=== PATIENT | male | born 1935 | race Caucasian/White ===

== ENCOUNTER → 2018-06-22 13:04 | Outpatient (CLI) | payer MEDICARE, OTHER, SELFPAY ==
--- NOTE | 2018-06-22 | DI.US.S_ITS ---
PROCEDURE: US THYROID INDICATIONS: ABNORMAL THYROID LEVELS TECHNIQUE: Real-time scanning was performed of the thyroid gland, with image documentation. COMPARISON: None. FINDINGS: Right: Thyroid lobe measures 1.1 x 1.2 x 4.1 cm, and is homogeneous in echotexture. Left: Thyroid lobe measures 1.0 x 1.0 x 3.8 cm, and is homogenous in echotexture. Isthmus: 2.1 mm thick. Nodule number: 1 Location: Right lower pole Size: 0.4 x 0.5 x 0.5 cm. Composition: Solid Echogenicity: Mostly isoechoic Shape: Round Margins: Smooth Echogenic foci: None Total points: 3 ACR TI-RADS category: 3 IMPRESSION: Small 5 mm solid nodule in the inferior pole of the right lobe of thyroid posteriorly shows characteristics of category 3 lesion. ACR TI-RADS definitions and recommendations: TI-RADS 1 (benign): 0 points. FNA not needed. TI-RADS 2 (not suspicious): 2 points. FNA not needed. TI-RADS 3 (mildly suspicious): 3 points. * FNA if 2.5 cm or larger, follow up if 1.5 cm or larger (at 1, 3, and 5 years). TI-RADS 4 (moderately suspicious): 4-6 points. * FNA if 1.5 cm or larger, follow up if 1 cm or larger (at 1, 2, 3, and 5 years). TI-RADS 5 (highly suspicious): 7 points or more. * FNA if 1 cm or larger, follow up if 0.5 cm or larger (every year for 5 years). Dictated by: Alan Ponce M.D. on 06/22/2018 at 14:59 Approved by: Alan Ponce M.D. on 06/22/2018 at 15:06
== END ==
PROVIDERS: Family Provider Family Medicine; PCP Family Medicine; Visit Provider Family Medicine
DX: E04.1 Nontoxic single thyroid nodule (principal); E03.9 Hypothyroidism, unspecified
CPT/HCPCS: 76536

== ENCOUNTER 2018-07-18 07:22 | Day surgery (SDC) | payer MEDICARE, OTHER, SELFPAY ==
[2018-07-18] MEDS: PROPARACAINE 0.5% OPHTH SOL 2 DROPS EYE-OP (08:15)
[2018-07-18] MEDS: CATARACT EYE COMPOUND (10 DROPS/SYRINGE) 3 DROPS EYE-OP (08:20)
[2018-07-18 08:21] VITALS: BP 132/70; PULSE 69; RESP 16; TEMP 36.3; O2SAT 98; BMI 25.8
--- NOTE | 2018-07-18 09:18 | PM.PREOP ---
Pre-operative Note Interval Note Changes: No
--- NOTE | 2018-07-18 09:19 | P.OP.PRE_ITS ---
Pre-operative Note Interval Note Changes: No
--- NOTE | 2018-07-18 09:19 | P.OP_ITS ---
Operative Date/Time/Diagnoses Pre-op diagnosis: Cataract Right eye Post-op diagnosis: same Procedure & Clinicians Procedure: Cataract Surgery Same procedure as scheduled: Yes Surgeon: Sha Manzano Anesthesia Type: MAC +/- and Sedation Operative Notes Procedure in detail: Patient brought to the operating suite. Tetracaine drops placed in the right eye. Patient was prepped and draped in sterile manner. Wire lid speculum was placed in the eye. Betadine drops were placed on the eye. This was irrigated. Lidocaine jelly was placed on the eye. A paracentesis port was created with a side-port blade. 0.1 mL 1% preservative free lidocaine was injected into the anterior chamber. The anterior chamber was deepened with viscoelastic. 2.6 mm keratome was used to create a temporal clear corneal incision. Cystotome and Utrata forceps were used to create continuous tear capsulorrhexis. Balanced salt solution was used to hydro dissect the nucleus. The phacoemulsification handpiece was inserted and the nucleus was removed using the stop and chop technique. The irrigation aspiration handpiece was inserted and the remaining cortex was removed. Anterior chamber was deepened with viscoelastic. An Donato ZCB00 intraocular lens with a power of 19.5 was injected into the capsular bag. Irrigation aspiration handpiece was inserted and the remaining viscoelastic was removed. Incision was hydrated with balanced salt solution and found to be leak free with pressure with Weck- Belkys sponges. 0.1 mL Vigamox injected anterior chamber. 0.3 mL Kenalog 10 mg was injected subconjunctivally. Lid speculum was removed. The patient left the operating room in excellent condition. Complications: none Condition: stable Disposition: same day surgery
[2018-07-18] MEDS: LIDOCAINE JELLY 2% 5 ML 1 APPLIC TOP (09:28)
[2018-07-18] MEDS: CHONDROIDTIN/SOD HYALURONATE 1.05 ML SYRINGE INTRAOCULA (09:28)
[2018-07-18] MEDS: TETRACAINE 0.5% OPHTH DROPS 15 ML 2 DROPS EYE-RIGHT (09:29)
[2018-07-18] MEDS: TRIAMCINOLONE 50 MG/5 ML VIAL INJ (09:29)
[2018-07-18] MEDS: MOXIFLOXACIN OPHTH DROPS 3 ML BOTTLE 2 DROPS INJ (09:29)
[2018-07-18] MEDS: PHENYLEPHRINE/LIDOCAINE 3ML VIAL (OR) EYE-OP (09:29)
[2018-07-18] MEDS: BALANCED SALT IRRIG SOLN NO.2 500 ML, EPINEPHrine 1 MG IRR (09:30)
--- NOTE | 2018-07-18 09:36 | SUR.OPER ---
Supine on eye stretcher, head on extension cradle secured with tape. Arms tucked at sides with blanket. Pillow under knees.
[2018-07-18 09:46] VITALS: BP 156/78; PULSE 68; RESP 16; TEMP 36.3; O2SAT 97
== END 2018-07-18 09:53 ==
LOC: OR 07:23
PROVIDERS: PCP Family Medicine; Visit Provider Ophthalmology
DX: H25.11 Age-related nuclear cataract, right eye (principal)
CPT/HCPCS: J0171; J3301

== ENCOUNTER 2018-08-01 07:25 | Day surgery (SDC) | payer MEDICARE, OTHER, SELFPAY ==
[2018-08-01] MEDS: PROPARACAINE 0.5% OPHTH SOL 2 DROPS EYE-OP (07:48)
[2018-08-01 08:02] VITALS: BP 140/70; PULSE 67; RESP 16; TEMP 36; O2SAT 99; BMI 25.1
[2018-08-01] MEDS: CATARACT EYE COMPOUND (10 DROPS/SYRINGE) 3 DROPS EYE-OP (08:02)
--- NOTE | 2018-08-01 09:15 | PM.PREOP ---
Pre-operative Note Interval Note Changes: No
--- NOTE | 2018-08-01 09:16 | P.OP_ITS ---
Operative Date/Time/Diagnoses Pre-op diagnosis: Cataract Left eye Post-op diagnosis: same Procedure & Clinicians Surgeon: Sha Manzano Anesthesia Type: MAC +/- and Sedation Operative Notes Procedure in detail: Patient brought to the operating suite. Tetracaine drops placed in the left eye. Patient was prepped and draped in sterile manner. Wire lid speculum was placed in the eye. Betadine drops were placed on the eye. This was irrigated. Lidocaine jelly was placed on the eye. A paracentesis port was created with a side-port blade. 0.1 mL 1% preservative free lidocaine was injected into the anterior chamber. The anterior chamber was deepened with viscoelastic. 2.6 mm keratome was used to create a temporal clear corneal incision. Cystotome and Utrata forceps were used to create continuous tear capsulorrhexis. Balanced salt solution was used to hydro dissect the nucleus. The phacoemulsification handpiece was inserted and the nucleus was removed using the stop and chop technique. The irrigation aspiration handpiece was inserted and the remaining cortex was removed. Anterior chamber was deepened with viscoelastic. An Donato ZCB00 intraocular lens with a power of 20.0 was injected into the capsular bag. Irrigation aspiration handpiece was inserted and the remaining viscoelastic was removed. Incision was hydrated with balanced salt solution and found to be leak free with pressure with Weck- Belkys sponges. 0.1 mL Vigamox injected anterior chamber. 0.3 mL Kenalog 10 mg was injected subconjunctivally. Lid speculum was removed. The patient left the operating room in excellent condition. Complications: none Condition: stable Disposition: same day surgery
--- NOTE | 2018-08-01 09:16 | P.OP.PRE_ITS ---
Pre-operative Note Interval Note Changes: No
[2018-08-01] MEDS: CHONDROIDTIN/SOD HYALURONATE 1.05 ML SYRINGE INTRAOCULA (09:28)
[2018-08-01] MEDS: LIDOCAINE JELLY 2% 5 ML 1 APPLIC TOP (09:28)
[2018-08-01] MEDS: MOXIFLOXACIN OPHTH DROPS 3 ML BOTTLE 2 DROPS INJ (09:29)
[2018-08-01] MEDS: TETRACAINE 0.5% OPHTH DROPS 15 ML 2 DROPS EYE-LEFT (09:29)
[2018-08-01] MEDS: PHENYLEPHRINE/LIDOCAINE VIAL (OR) 0.2 ML EYE-OP (09:29)
[2018-08-01] MEDS: TRIAMCINOLONE 50 MG/5 ML VIAL INJ (09:29)
[2018-08-01] MEDS: BALANCED SALT IRRIG SOLN NO.2 500 ML, EPINEPHrine 1 MG IRR (09:30)
[2018-08-01 09:45] VITALS: BP 144/76; PULSE 61; RESP 16; TEMP 36.5; O2SAT 100
== END 2018-08-01 10:00 ==
LOC: OR 07:27
PROVIDERS: PCP Family Medicine; Visit Provider Ophthalmology
DX: H25.12 Age-related nuclear cataract, left eye (principal); Z86.73 Personal history of transient ischemic attack (TIA), and cerebral infarction without residual deficits
CPT/HCPCS: J0171; J2250; J3010; J3301

== ENCOUNTER 2024-08-27 17:34 | Inpatient (IN) | payer MEDICARE, OTHER, SELFPAY ==
[2024-08-27] VITALS (24 sets, daily range): BP systolic 133–218; BP diastolic 64–87; PULSE 80–107; RESP 20–48; TEMP 31–36.6; O2SAT 70–98
--- NOTE | 2024-08-27 17:50 | DI.RAD.S_ITS ---
PROCEDURE: XR CHEST 1V INDICATIONS: hypoxia TECHNIQUE: One view of the chest was acquired. COMPARISON: None. FINDINGS: Surgical changes and devices: None. Lungs and pleura: Patchy bilateral pulmonary opacities, left greater than right. Mediastinum: Mediastinal contours appear normal. Heart size is normal. Bones and chest wall: No suspicious bony lesions. Overlying soft tissues appear unremarkable. IMPRESSION: Patchy bilateral pulmonary opacities suspicious for pneumonia. Component of underlying interstitial chronic lung disease cannot be excluded. No priors are available for comparison. Dictated by: Nunu Gomez M.D. on 08/27/2024 at 18:34 Approved by: Nunu Gomez M.D. on 08/27/2024 at 18:35
[2024-08-27] MEDS: FUROSEMIDE 40 MG/4 ML VIAL IV (17:56)
[2024-08-27 17:59] LABS: Base Excess VBG 0.8 mmol/L (0-4); HCO3 VBG 26 mmol/L (24-28); Oxygen Saturation VBG 38 % (70-75); PCO2 VBG 42.3 mmHg (45-50); PO2 VBG 22 mmHg (35-45); Total CO2 VBG 26 mmol/L (24-29)
[2024-08-27] MEDS: cefTRIAXone 2,000 MG in SODIUM CHLORIDE 0.9% 100 ML 200 MG IV (18:01)
[2024-08-27 18:03] LABS: Add Manual Diff / Slide Review NO; Basophils Absolute Auto 100 /uL (0-100); Basophils Percent Auto 0.7 % (0-2); Eosinophils Absolute Auto 200 /uL (0-450); Eosinophils Percent Auto 1.4 % (2-4); Hematocrit 38.3 % (41-53); Hemoglobin 12.8 g/dL (13.5-17.5); Lymphocytes Absolute Auto 900 /uL (1100-4500); Lymphocytes Percent Auto 7.2 % (25-40); Mean Corpuscular HGB Conc 33.5 % (30-36); Mean Corpuscular Hemoglobin 34.7 PG (26-34); Mean Corpuscular Volume 103.4 fL (80-100); Monocytes Absolute Auto 1100 /uL (0-900); Neutrophils Absolute Auto 10200 /uL (1500-7000); Neutrophils Percent Auto 81.7 % (50-75); Platelet Count 313 X10^3/uL (150-400); Red Cell Distribution Width 12.9 % (11.6-14.8); White Blood Cell Count 12.5 X10^3/uL (4.5-11.0)
[2024-08-27 18:13] LABS: Lactate (Lactic Acid) 1.9 mmol/L (0.7-2.1)
[2024-08-27 18:14] LABS: Alanine Aminotransferase 23 IU/L (<50); Albumin 3.8 g/dL (3.5-5.0); Albumin Globulin Ratio 1.1 (1.0-2.8); Alkaline Phosphatase 167 U/L (38-126); Aspartate Aminotransferase 31 IU/L (17-59); BUN Creatinine Ratio 20.2 (6-22); Bilirubin Total 0.7 mg/dL (0.2-1.3); Blood Urea Nitrogen 20 mg/dL (9-20); Calcium 9.4 mg/dL (8.4-10.2); Carbon Dioxide 25 mmol/L (22-32); Chloride 100 mmol/L (98-107); Estimated Glomerular Filt Rate > 60 mL/min (>60); Globulin 3.6 g/dL (1.7-4.1); Glucose 129 mg/dL (80-110); HEMOLYSIS < 15 (0-50); Magnesium 1.9 mg/dL (1.6-2.3); Potassium 4.4 mmol/L (3.4-5.1); Sodium 133 mmol/L (137-145); Total Protein 7.4 g/dL (6.3-8.2)
--- NOTE | 2024-08-27 18:15 | ED_ITS ---
HPI - SOB/Dyspnea General Chief Complaint: Shortness of Breath/Dyspnea Stated Complaint: Pneumonia, sent by PCP Time Seen by Provider: 08/27/24 17:49 Source: patient and family Mode of arrival: Wheelchair History of Present Illness HPI Narrative: 89yoM with no reported significant medical hx (takes simvastatin and levothyroxine) presents by private vehicle from home for 1 week of progressively worsening shortness of breath. After a telehealth appointment today patient was referred to the ED for evaluation. Found to by hypoxic in the 70s and tachypneic on arrival, taken quickly to ED bed for assessment and placed on O2 Related Data Home Medications Medication Instructions Recorded Confirmed ASPIRIN (Aspir-Low) 81 mg PO DAILY ##0 07/16/13 08/01/18 VITAMIN D (Vitamin D3) 2,000 unit PO QDAY ##0 07/16/13 07/18/18 docusate sodium 250 mg capsule 250 mg PO QDAY ##0 07/16/13 08/01/18 simvastatin 20 mg tablet (Zocor) 20 mg PO DAILY ##0 07/16/13 08/01/18 tamsulosin 0.4 mg capsule (Flomax) 0.4 mg PO QDAY ##0 07/16/13 08/01/18 levothyroxine 25 mcg capsule 25 mcg PO DAILY 07/18/18 08/01/18 Allergies Allergy/AdvReac Type Severity Reaction Status Date / Time No Known Allergies Allergy Uncoded 07/18/18 08:29 Patient History Social History household members: spouse Smoking Status: Never smoker Smoking Status: Never smoker Substance Use Type: does not use Exam Initial Vital Signs Initial Vital Signs: Vital Signs Temperature 97.8 F 08/27/24 17:36 Pulse Rate 107 H 08/27/24 17:36 Respiratory Rate 48 H 08/27/24 17:36 Blood Pressure 167/81 H 08/27/24 17:36 Pulse Oximetry 70 L 08/27/24 17:36 Oxygen Delivery Method Room Air 08/27/24 17:36 Const: Awake, alert, ill-appearing, nontoxic Cardiac: regular rate, regular rhythm RESP: tachypneic, inspiratory crackles, no wheezing GI: Soft, nontender, nondistended, no rebound, no guarding MSK: Atraumatic, full range of motion, pulses equal Skin: Warm, Dry, intact, no rashes Neuro: AO x3, CN II-XII grossly intact, moves all extremities Course Orders Ordered: ED Orders 08/27/24 17:48 Complete Blood Count AUTO DIFF Stat Comprehensive Metabolic Panel Stat Lactate (Lactic Acid) Stat Magnesium Stat NT-proBNP (BNP-Adult 18+) Stat Procalcitonin Stat Troponin I Stat 08/27/24 17:50 XR chest 1V Stat EKG-12 Lead Stat VBG [Venous Blood Gas] STAT 08/27/24 17:53 Venous Blood Gas Routine 08/27/24 17:54 Respiratory Panel (Film Array) Stat 08/27/24 17:58 Blood Culture Stat 08/27/24 18:50 Urinalysis and Microscopic Stat Discontinued Medications Furosemide (Furosemide 40 Mg/4 Ml Vial) 40 mg IV NOW ONE Stop: 08/27/24 17:51 Last Admin: 08/27/24 17:56 Dose: 40 mg Documented By: YOON Ceftriaxone Sodium 2,000 mg/ (Sodium Chloride) 100 mls @ 200 mls/hr IV NOW ONE Stop: 08/27/24 17:51 Last Infusion: 08/27/24 18:47 Dose: Infused Documented By: Admin: 08/27/24 18:01 Dose: 200 mls/hr Documented By: YOON Azithromycin 500 mg/ Dextrose 250 mls @ 250 mls/hr IV NOW ONE Stop: 08/27/24 17:51 Last Infusion: 08/27/24 19:57 Dose: Infused Documented By: Admin: 08/27/24 18:48 Dose: 250 mls/hr Documented By: KARINA Vital Signs Vital signs: Vital Signs - 8 hr 08/27/24 17:36 08/27/24 17:42 08/27/24 17:42 Temperature 97.8 F Pulse Rate 107 H 105 H Respiratory Rate 48 H Blood Pressure 167/81 H 167/81 H Pulse Oximetry 70 L 91 Oxygen Delivery Method Room Air Non -Rebreather Oxygen Flow Rate 15 08/27/24 18:00 08/27/24 18:04 08/27/24 18:04 Temperature Pulse Rate 94 H 93 H Respiratory Rate 42 H 37 H Blood Pressure 163/82 H Pulse Oximetry 97 95 Oxygen Delivery Method Oximask Oxygen Flow Rate 6 08/27/24 18:15 08/27/24 18:15 08/27/24 18:30 Temperature Pulse Rate 91 H Respiratory Rate 35 H Blood Pressure 160/77 H 181/81 H Pulse Oximetry 93 Oxygen Delivery Method Oxygen Flow Rate 08/27/24 18:30 08/27/24 18:45 08/27/24 18:45 Temperature Pulse Rate 97 H 100 H Respiratory Rate 36 H 46 H Blood Pressure 134/87 Pulse Oximetry 96 91 Oxygen Delivery Method Oximask Oxygen Flow Rate 10 08/27/24 19:00 08/27/24 19:15 08/27/24 19:15 Temperature Pulse Rate 98 H 91 H Respiratory Rate 43 H 40 H Blood Pressure 145/69 H Pulse Oximetry 98 Oxygen Delivery Method Oximask Oxygen Flow Rate 10 MDM - SOB/Dyspnea Lab Data 08/27/24 17:48 08/27/24 17:48 Labs: Lab Results 08/27/24 08/27/24 08/27/24 Range/Units 17:48 17:53 17:54 WBC 12.5 H (4.5-11.0) X10^3/uL RBC 3.70 L (4.5-5.9) X10^6/uL Hgb 12.8 L (13.5-17.5) g/dL Hct 38.3 L (41-53) % MCV 103.4 H (80-100) fL MCH 34.7 H (26-34) PG MCHC 33.5 (30-36) % RDW 12.9 (11.6-14.8) % Plt Count 313 (150-400) X10^3/uL Neut % (Auto) 81.7 H (50-75) % Lymph % (Auto) 7.2 L (25-40) % [place] % (Auto) 9.0 (3-14) % Eos % (Auto) 1.4 L (2-4) % Baso % (Auto) 0.7 (0-2) % Neut # (Auto) 84427 H (3898-9512) /uL Lymph # (Auto) 900 L (6866-8493) /uL [place] # (Auto) 1100 H (0-900) /uL Eos # (Auto) 200 (0-450) /uL Baso # (Auto) 100 (0-100) /uL VBG pH 7.40 (7.33-7.43) VBG pCO2 42.3 L (45-50) mmHg VBG pO2 22 L (35-45) mmHg VBG HCO3 26 (24-28) mmol/L VBG Total CO2 26 (24-29) mmol/L VBG O2 Saturation 38 L (70-75) % VBG Base Excess 0.8 (0-4) mmol/L FiO2 % % Sodium 133 L (137-145) mmol/L Potassium 4.4 (3.4-5.1) mmol/L Chloride 100 (98-107) mmol/L Carbon Dioxide 25 (22-32) mmol/L BUN 20 (9-20) mg/dL Creatinine 0.99 (0.66-1.25) mg/dL Estimated GFR > 60 (>60) mL/min BUN/Creatinine Ratio 20.2 (6-22) Glucose 129 H (80-110) mg/dL Lactate 1.9 (0.7-2.1) mmol/L Calcium 9.4 (8.4-10.2) mg/dL Magnesium 1.9 (1.6-2.3) mg/dL Total Bilirubin 0.7 (0.2-1.3) mg/dL AST 31 (17-59) IU/L ALT 23 (<50) IU/L Alkaline Phosphatase 167 H (38-126) U/L Troponin I < 0.012 (0.01-0.034) ng/mL NT-Pro-B Natriuret Pep 2100 H (<450) pg/mL Total Protein 7.4 (6.3-8.2) g/dL Albumin 3.8 (3.5-5.0) g/dL Globulin 3.6 (1.7-4.1) g/dL Albumin/Globulin Ratio 1.1 (1.0-2.8) Procalcitonin 0.144 (<0.5) ng/mL Urine Color Urine Appearance Urine pH (4.5-8.0) Ur Specific [place] (1.000-1.035) Urine Protein (Negative) Urine Glucose (UA) (Negative) g/dL Urine Ketones (NEGATIVE) Urine Occult Blood (Negative) Urine Nitrate (Negative) Urine Bilirubin (NEGATIVE) Urine Urobilinogen (0.2) E.U./dL Ur Leukocyte Esterase (NEGATIVE) Urine RBC (0-5/HPF) Urine WBC (0-5/HPF) Ur Squamous Epith Cells (0-5/HPF) Amorphous Sediment Urine Bacteria (None) Ur Culture Indicated? Vol Urine Centrifuged Chlamy pneumoniae PCR Not detected (Not Detect) Adenovirus (PCR) Not detected (Not Detect) B. pertussis DNA (PCR) Not detected (Not Detect) B.parapertussis DNA PCR Not detected (Not Detecte) Coronavirus OC43 (PCR) Not detected (Not Detect) Coronavirus HKU1 (PCR) Not detected (Not Detect) Coronavirus 229E (PCR) Not detected (Not Detect) SARS-CoV-2 (PCR) Not detected (Not Detecte) Coronavirus NL63 (PCR) Not detected (Not Detect) Human Metapneumovir PCR Not detected (Not Detect) Influenza Type A (PCR) Not detected (Not Detect) Influenza Type B (PCR) Not detected (Not Detect) M. pneumoniae (PCR) Not detected (Not Detect) Parainfluenza 1 (PCR) Not detected (Not Detect) Parainfluenza 2 (PCR) Not detected (Not Detect) Parainfluenza 3 (PCR) Not detected (Not Detect) Parainfluenza 4 (PCR) Not detected (Not Detect) RSV (PCR) Not detected (Not Detect) Entero/Rhino (PCR) Not detected (Not Detect) 08/27/24 Range/Units 18:50 WBC (4.5-11.0) X10^3/uL RBC (4.5-5.9) X10^6/uL Hgb (13.5-17.5) g/dL Hct (41-53) % MCV (80-100) fL MCH (26-34) PG MCHC (30-36) % RDW (11.6-14.8) % Plt Count (150-400) X10^3/uL Neut % (Auto) (50-75) % Lymph % (Auto) (25-40) % [place] % (Auto) (3-14) % Eos % (Auto) (2-4) % Baso % (Auto) (0-2) % Neut # (Auto) (7927-4191) /uL Lymph # (Auto) (5654-9898) /uL [place] # (Auto) (0-900) /uL Eos # (Auto) (0-450) /uL Baso # (Auto) (0-100) /uL VBG pH (7.33-7.43) VBG pCO2 (45-50) mmHg VBG pO2 (35-45) mmHg VBG HCO3 (24-28) mmol/L VBG Total CO2 (24-29) mmol/L VBG O2 Saturation (70-75) % VBG Base Excess (0-4) mmol/L FiO2 % % Sodium (137-145) mmol/L Potassium (3.4-5.1) mmol/L Chloride (98-107) mmol/L Carbon Dioxide (22-32) mmol/L BUN (9-20) mg/dL Creatinine (0.66-1.25) mg/dL Estimated GFR (>60) mL/min BUN/Creatinine Ratio (6-22) Glucose (80-110) mg/dL Lactate (0.7-2.1) mmol/L Calcium (8.4-10.2) mg/dL Magnesium (1.6-2.3) mg/dL Total Bilirubin (0.2-1.3) mg/dL AST (17-59) IU/L ALT (<50) IU/L Alkaline Phosphatase (38-126) U/L Troponin I (0.01-0.034) ng/mL NT-Pro-B Natriuret Pep (<450) pg/mL Total Protein (6.3-8.2) g/dL Albumin (3.5-5.0) g/dL Globulin (1.7-4.1) g/dL Albumin/Globulin Ratio (1.0-2.8) Procalcitonin (<0.5) ng/mL Urine Color Yellow Urine Appearance Clear Urine pH 6.5 (4.5-8.0) Ur Specific [place] <=1.005 (1.000-1.035) Urine Protein Negative (Negative) Urine Glucose (UA) Negative (Negative) g/dL Urine Ketones Negative (NEGATIVE) Urine Occult Blood Negative (Negative) Urine Nitrate Negative (Negative) Urine Bilirubin Negative (NEGATIVE) Urine Urobilinogen 0.2 (0.2) E.U./dL Ur Leukocyte Esterase Negative (NEGATIVE) Urine RBC None seen (0-5/HPF) Urine WBC None seen (0-5/HPF) Ur Squamous Epith Cells None seen (0-5/HPF) Amorphous Sediment 1+ Urine Bacteria None seen (None) Ur Culture Indicated? Cult not indicated Vol Urine Centrifuged 10ml (spun) Chlamy pneumoniae PCR (Not Detect) Adenovirus (PCR) (Not Detect) B. pertussis DNA (PCR) (Not Detect) B.parapertussis DNA PCR (Not Detecte) Coronavirus OC43 (PCR) (Not Detect) Coronavirus HKU1 (PCR) (Not Detect) Coronavirus 229E (PCR) (Not Detect) SARS-CoV-2 (PCR) (Not Detecte) Coronavirus NL63 (PCR) (Not Detect) Human Metapneumovir PCR (Not Detect) Influenza Type A (PCR) (Not Detect) Influenza Type B (PCR) (Not Detect) M. pneumoniae (PCR) (Not Detect) Parainfluenza 1 (PCR) (Not Detect) Parainfluenza 2 (PCR) (Not Detect) Parainfluenza 3 (PCR) (Not Detect) Parainfluenza 4 (PCR) (Not Detect) RSV (PCR) (Not Detect) Entero/Rhino (PCR) (Not Detect) Imaging Data Chest x-ray: Radiologist's Impression: PROCEDURE: XR CHEST 1V INDICATIONS: hypoxia TECHNIQUE: One view of the chest was acquired. COMPARISON: None. FINDINGS: Surgical changes and devices: None. Lungs and pleura: Patchy bilateral pulmonary opacities, left greater than right. Mediastinum: Mediastinal contours appear normal. Heart size is normal. Bones and chest wall: No suspicious bony lesions. Overlying soft tissues appear unremarkable. IMPRESSION: Patchy bilateral pulmonary opacities suspicious for pneumonia. Component of underlying interstitial chronic lung disease cannot be excluded. No priors are available for comparison. Dictated by: Nunu Gomez M.D. on 08/27/2024 at 18:34 Approved by: Nunu Gomez M.D. on 08/27/2024 at 18:35 [facility] Narrative Medical decision making narrative: Acute hypoxemic respiratory failure requiring supplemental oxygen. Patient taken quickly to ER bed and placed on OxyMask with improvement in saturations. Preliminary review of chest x-ray seems to show bilateral pneumonia. Patient denies recent hospitalizations, treated for community acquired pneumonia with Rocephin and azithromycin. Patient was maintaining saturations on OxyMask, however he continues to be tachypneic. Placed on CPAP for additional respiratory support. Laboratory work reviewed, patient has mild elevation in BNP but EKG is nonischemic, troponins undetectable. Patient to be admitted for further treatment of his condition. Critical Care Time Critical Care Time Critical Care Time: Yes Total Critical Care Time: 33 Attestation: Acute hypoxemic respiratory failure requiring broad-spectrum antibiotics, CPAP, VBG, admission to hospital Discharge Plan Departure Patient Disposition: Admitted As Inpatient Clinical Impression: Community acquired pneumonia, Acute hypoxemic respiratory failure Admit Date/Time: 08/27/24 19:19 Admit Provider: Hussain Garcia
--- NOTE | 2024-08-27 18:16 | EKG_ITS ---
[address] [address] Test Date: 2024-08-27 Pat Name: David Lehman Department: [facility] Room: Gender: Male [employer] Tender: COLT : 1935 Requested By: Order Number: [id number] Reading MD: Kyle Davis MD Measurements Intervals [place] Rate: 97 P: 17 WV: 144 QRS: 2 QRSD: 84 T: 17 QT: 378 QTc: 480 Interpretive Statements Normal sinus rhythm Prolonged QT Electronically Signed On 08-28-2024 7:46:57 PDT by Kyle Davis MD
--- NOTE | 2024-08-27 18:18 | PC.NURSE ---
This RN present upon patient admission into the ED. Fingers are noted to be blue. Pt is working to breath with respirations between 42-48. Pt was placed on non-rebreather at 15L/min and oxygen improves to 99%. RT is at bedside along with provider Brittnee. Pt is placed on oximask at 7L by RT. His current oxygen saturation is 92%.
[2024-08-27 18:26] LABS: NT-proBNP (BNP-Adult 18+) 2100 pg/mL (<450); Troponin I < 0.012 ng/mL (0.01-0.034)
[2024-08-27 18:31] LABS: Procalcitonin 0.144 ng/mL (<0.5)
--- NOTE | 2024-08-27 18:31 | PC.NURSE ---
This RN assists patient to urinate. While taking his pants off while he remains in bed and remains sitting upright his oxygen desates to 76% on 7L via oximask. This RN places patient on 15L via non-rebreather and calls RT. Provider Navi made aware.
[2024-08-27] MEDS: AZITHROMYCIN 500 MG in DEXTROSE 5% IN WATER 250 ML 250 MG IV (18:48)
[2024-08-27 18:49] LABS: Adenovirus Not Detected (Not Detect); B. parapertussis Not Detected (Not Detecte); Bordetella pertussis Not Detected (Not Detect); Chlamydophila pneumoniae Not Detected (Not Detect); Coronavirus 229E Not Detected (Not Detect); Coronavirus HKU1 Not Detected (Not Detect); Coronavirus NL 63 Not Detected (Not Detect); Coronavirus OC43 Not Detected (Not Detect); Human Metapneumovirus Not Detected (Not Detect); Human Rhinovirus/Enterovirus Not Detected (Not Detect); Influenza A Not Detected (Not Detect); Influenza B Not Detected (Not Detect); Mycoplasma pneumoniae Not Detected (Not Detect); Parainfluenza Virus 1 Not Detected (Not Detect); Parainfluenza Virus 2 Not Detected (Not Detect); Parainfluenza Virus 3 Not Detected (Not Detect); Parainfluenza Virus 4 Not Detected (Not Detect); Respiratory Syncytial Virus Not Detected (Not Detect); SARS- CoV-2 Not Detected (Not Detecte)
--- NOTE | 2024-08-27 18:51 | PC.NURSE ---
Pts is Kori; [phone], She would like an update regarding room number etc.
[2024-08-27 19:06] LABS: Appearance Urine UA CLEAR; Bilirubin Urine UA NEGATIVE (NEGATIVE); Color Urine UA YELLOW; Glucose Urine UA NEGATIVE (Negative); Ketones Urine UA NEGATIVE (NEGATIVE); Leukocyte Esterase Urine UA NEGATIVE (NEGATIVE); Nitrite Urine UA NEGATIVE (Negative); Occult Blood Urine UA NEGATIVE (Negative); Protein Urine UA NEGATIVE (Negative); Specific Gravity Urine UA <=1.005 (1.000-1.035); Urobilinogen Urine UA 0.2 E.U./dL (0.2); pH Urine UA 6.5 (4.5-8.0)
[2024-08-27 19:24] LABS: Amorphous Sediment Urine 1+; Bacteria Urine None Seen; RBC Urine None Seen (0-5/HPF); Squamous Epithelial Cell Urine None Seen (0-5/HPF); Urine Volume 10mL (spun); WBC Urine None Seen (0-5/HPF)
[2024-08-27 19:25] LABS: Culture Indicated Urine Cult Not Indicated
--- NOTE | 2024-08-27 20:47 | DI.ECHO.S_ITS ---
[facility]+ [facility] : : [address] : : [place] : : [id number] : : Phone: [phone] Echocardiogram Report + + :Name: CHUCK BURK Study Date: 08/28/2024 Height: 69.5 in: :[facility] ReadingLocation: Weight: 165 lb : : Gender: Male BSA: 1.9 m2 : :: 1935 Age: 89 yrs BP: 124/58 mmHg: :Reason For Study: CONGESTIVE HEART FAILURE : :Ordering Physician: LAWANDA, : :SULAIMAN Performed By: Yesenia Linda : :Referring: SULAIMAN WEBBER : + + Interpretation Summary The left ventricle is normal in size and wall thickness. Left ventricular systolic function appears normal without focal wall motion abnormalities. The ejection fraction is estimated to be 60-65%. Diastolic parameters suggest probable normal left ventricular diastolic function and normal filling pressures. The right ventricle is borderline dilated. The right ventricular systolic function is normal. The right ventricular systolic pressure is estimated to be at least 56 mmHg based on an estimated right atrial pressure of 3 mm Hg. The left atrial size is normal. 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 There is mild mitral regurgitation. The aortic valve is mildly calcified. There is discrete nodular thickening of the non- coronary cusp. There is mild to moderate tricuspid regurgitation. The aortic root is normal size. Procedure: A two-dimensional transthoracic echocardiogram with color flow and Doppler was performed. The study quality was technically adequate. There is no prior echocardiogram noted for this patient. The patient was in sinus rhythm with heart rates between 83-91 bpm during the exam. Left Ventricle: The left ventricle is normal in size and wall thickness. Left ventricular systolic function appears normal without focal wall motion abnormalities. The ejection fraction is estimated to be 60-65%. Diastolic parameters suggest probable normal left ventricular diastolic function and normal filling pressures. Right Ventricle: The right ventricle is borderline dilated. The right ventricular systolic function is normal. Atria: The left atrial size is normal. Right atrial size is normal. There is no Doppler evidence for an interatrial shunt. 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 Mitral Valve: The mitral valve is normal in structure and function. There is mild mitral regurgitation. Aortic Valve: The aortic valve is trileaflet. The aortic valve is mildly calcified. There is discrete nodular thickening of the non- coronary cusp. There is no aortic valve stenosis. No aortic regurgitation is present. Tricuspid Valve: The tricuspid valve leaflets are thin and pliable. There is mild to moderate tricuspid regurgitation. The right ventricular systolic pressure is estimated to be at least 56 mmHg based on an estimated right atrial pressure of 3 mm Hg. Pulmonic Valve: The pulmonic valve leaflets are thin and pliable; valve motion is normal. There is mild pulmonic regurgitation. Great Vessels: The aortic root is normal size. The dimensions of the ascending aorta are normal. The IVC is of normal diameter and collapses greater than 50% with a sniff. This suggests a low right atrial pressure of 3 mm Hg. Pericardium/ Pleura There is no pericardial effusion. There is no pleural effusion. MMode/2D Measurements & Calculations LVIDd: 4.7 cm LVOT diam: 2.0 cm LVIDs: 3.1 cm Ao root diam: 3.3 cm FS: 34.4 % asc Aorta Diam: 2.9 cm IVSd: 0.93 cm Ao Arch Diam (Prox Trans): 2.6 cm LVPWd: 0.89 cm LV goins. diameter/BSA (cm/m^2): 2.5 LV sys. diameter/BSA (cm/m^2): 1.6 LA A2 area: 16.9 cm2 RA long axis: 4.7 cm LA A4 area: 15.9 cm2 RA area: 14.1 cm2 LA length (vol): 4.5 cm RA vol: 35.9 ml LA vol: 51.4 ml RA : 18.7 ml/m2 LA vol index: 26.8 ml/m2 IVC diam: 1.2 cm RVD1 (basal): 4.1 cm TAPSE: 1.7 cm Doppler Measurements & Calculations Ao V2 max: 143.3 cm/sec LVOT Max Cristóbal: 120.0 cm/sec Ao V2 mean: 96.4 cm/sec LV V1 max P.8 mmHg Ao max P.2 mmHg LV V1 VTI: 23.1 cm Ao mean P.2 mmHg LUIS(I,D): 2.7 cm2 Ao V2 VTI: 26.1 cm LUIS(V,D): 2.6 cm2 sev ratio: 0.88 LUIS indexed to BSA (cm^2/m^2): 1.4 MV E max cristóbal: 97.0 cm/sec TR max cristóbal: 363.2 cm/sec MV A max cristóbal: 79.2 cm/sec TR max P.8 mmHg MV E/A: 1.2 PA V2 max: 102.8 cm/sec Med Peak E' Cristóbal: 6.9 cm/sec PA V2 mean: 72.2 cm/sec E/E' med: 14.1 PA mean P.3 mmHg Lat Peak E' Cristóbal: 6.8 cm/sec PA pr(Accel): 56.7 mmHg E/E' lat: 14.2 E/e' average: 14.1 MV dec time: 0.19 sec SV(LVOT): 71.2 ml Reading Physician:01:06 PM
--- NOTE | 2024-08-27 21:44 | RT ---
Patient moved to ICU from ER on 15L oxymask then placed back on CPAP.
[2024-08-27] MEDS: SODIUM CHLORIDE 0.9% 1,000 ML 75 ML IV (21:46)
--- NOTE | 2024-08-27 22:26 | PM.HP.1 ---
History of Present Illness History of Present Illness Chief complaint: Pneumonia, sent by PCP Narrative: 89 years old male with history of hyperlipidemia, hypothyroidism, BPH, CAD, presented to the ER with shortness of breath for 1 week. He had a telehealth visit today and was referred to the ED for evaluation. Found to be hypoxic in the 70s on arrival and put on CPAP. Never had any pneumonia before. Compliant with his home medications. Denies any fever, sick contacts, recent travel, chest pain, palpitations, nausea, vomiting, abdominal pain, diarrhea or dysuria. REPLACED BY [facility] Social History household members: spouse Smoking Status: Never smoker Meds Home Medications and Allergies Home Medications Medication Instructions Recorded Confirmed Type ASPIRIN (Aspir-Low) 81 mg PO DAILY ##0 07/16/13 08/01/18 History VITAMIN D (Vitamin D3) 2,000 unit PO QDAY ##0 07/16/13 07/18/18 History docusate sodium 250 mg capsule 250 mg PO QDAY ##0 07/16/13 08/01/18 History simvastatin 20 mg tablet (Zocor) 20 mg PO DAILY ##0 07/16/13 08/01/18 History tamsulosin 0.4 mg capsule (Flomax) 0.4 mg PO QDAY ##0 07/16/13 08/01/18 History levothyroxine 25 mcg capsule 25 mcg PO DAILY 07/18/18 08/01/18 History Allergies Allergy/AdvReac Type Severity Reaction Status Date / Time No Known Allergies Allergy Uncoded 07/18/18 08:29 Review of Systems Review of Systems ROS: Yes All systems reviewed with the patient and are negative except as otherwise documented Constitutional Constitutional: Reports as per HPI and Reports system reviewed and no additional complaints, except as documented Eyes Eyes: Reports as per HPI and Reports system reviewed and no additional complaints, except as documented ENT Ears, Nose, Mouth, and Throat: Yes as per HPI and Yes system reviewed and no additional complaints, except as documented Cardiovascular Cardiovascular: Reports system reviewed and no additional complaints, except as documented Respiratory Respiratory: Reports system reviewed and no additional complaints, except as documented Gastrointestinal Gastrointestinal: Reports system reviewed and no additional complaints, except as documented Genitourinary Genitourinary: Reports system reviewed and no additional complaints, except as documented Musculoskeletal Musculoskeletal: Reports system reviewed and no additional complaints, except as documented, Reports abnormal gait and Reports numbness Neurologic Neurologic: Reports system reviewed and no additional complaints, except as documented, Reports abnormal gait, Reports confusion and Reports numbness Psychiatric Psychiatric: Reports system reviewed and no additional complaints, except as documented and Reports confusion Exam Vital Signs (past 8 hours): - 08/27/24 17:36 08/27/24 17:42 08/27/24 17:42 Temperature 97.8 F Pulse Rate 107 H 105 H Respiratory Rate 48 H Blood Pressure 167/81 H 167/81 H Pulse Oximetry 70 L 91 Oxygen Delivery Method Room Air Non -Rebreather Oxygen Flow Rate 15 Fraction of Inspired Oxygen 08/27/24 18:00 08/27/24 18:04 08/27/24 18:04 Temperature Pulse Rate 94 H 93 H Respiratory Rate 42 H 37 H Blood Pressure 163/82 H Pulse Oximetry 97 95 Oxygen Delivery Method Oximask Oxygen Flow Rate 6 Fraction of Inspired Oxygen 08/27/24 18:15 08/27/24 18:15 08/27/24 18:30 Temperature Pulse Rate 91 H Respiratory Rate 35 H Blood Pressure 160/77 H 181/81 H Pulse Oximetry 93 Oxygen Delivery Method Oxygen Flow Rate Fraction of Inspired Oxygen 08/27/24 18:30 08/27/24 18:45 08/27/24 18:45 Temperature Pulse Rate 97 H 100 H Respiratory Rate 36 H 46 H Blood Pressure 134/87 Pulse Oximetry 96 91 Oxygen Delivery Method Oximask Oxygen Flow Rate 10 Fraction of Inspired Oxygen 08/27/24 19:00 08/27/24 19:15 08/27/24 19:15 Temperature Pulse Rate 98 H 91 H Respiratory Rate 43 H 40 H Blood Pressure 145/69 H Pulse Oximetry 98 Oxygen Delivery Method Oximask Oxygen Flow Rate 10 Fraction of Inspired Oxygen 08/27/24 19:30 08/27/24 19:30 08/27/24 19:44 Temperature Pulse Rate 91 H Respiratory Rate 31 H Blood Pressure 177/78 H Pulse Oximetry 95 Oxygen Delivery Method Oxygen Flow Rate Fraction of Inspired Oxygen 35 08/27/24 19:45 08/27/24 19:45 08/27/24 20:00 Temperature Pulse Rate 87 105 H Respiratory Rate 27 H 47 H Blood Pressure 146/83 H Pulse Oximetry 96 87 L Oxygen Delivery Method Oxygen Flow Rate Fraction of Inspired Oxygen 08/27/24 20:00 08/27/24 20:04 08/27/24 20:04 Temperature Pulse Rate 91 H Respiratory Rate 43 H Blood Pressure 218/84 H 157/75 H Pulse Oximetry 96 Oxygen Delivery Method BiPAP Oxygen Flow Rate 7 Fraction of Inspired Oxygen 08/27/24 20:15 08/27/24 20:15 08/27/24 20:31 Temperature Pulse Rate 86 Respiratory Rate 24 Blood Pressure 133/64 136/75 Pulse Oximetry 97 Oxygen Delivery Method BiPAP Oxygen Flow Rate Fraction of Inspired Oxygen 08/27/24 20:31 08/27/24 20:45 08/27/24 20:45 Temperature Pulse Rate 96 H 82 Respiratory Rate 26 H Blood Pressure 139/69 Pulse Oximetry 96 Oxygen Delivery Method Oxygen Flow Rate Fraction of Inspired Oxygen 08/27/24 21:00 08/27/24 21:00 08/27/24 21:29 Temperature Pulse Rate 81 Respiratory Rate 26 H Blood Pressure 135/70 155/76 H Pulse Oximetry 96 Oxygen Delivery Method BiPAP Oxygen Flow Rate Fraction of Inspired Oxygen 08/27/24 21:29 08/27/24 21:30 08/27/24 21:41 Temperature 97.3 F L Pulse Rate 89 89 Respiratory Rate 43 H 29 H Blood Pressure Pulse Oximetry 96 95 Oxygen Delivery Method Oxygen Flow Rate Fraction of Inspired Oxygen 35 Fraction of Inspired Oxygen 35 Oxygen Delivery Method BiPAP Oxygen Flow Rate 7 Const General: cooperative, comfortable and well developed Orientation: alert and oriented x3 [facility] Head: normal to inspection, normocephalic and atraumatic Face and sinus: normal facial exam Mouth: oral mucosae normal and moist mucous membranes Throat: posterior oropharynx normal Eyes General: appearance normal, both eyes and all related structures Pupils: PERRL EOM: EOM intact bilaterally Neck Neck: normal visual inspection and full ROM Chest Chest: normal inspection of the chest Resp Effort & Inspection: normal respiratory effort and able to speak in complete sentences Auscultation: clear to auscultation bilaterally Cardio Palpation: normal PMI Rate: regular rate Rhythm: regular rhythm Heart Sounds: S1 normal and S2 normal GI Inspection: normal to inspection Palpation: soft and no hepatosplenomegaly Auscultation: normal bowel sounds Skin General: no rashes or lesions noted Lesions: no lesions Rashes: no rashes Trauma: no lacerations or abrasions Neuro General: patient alert, patient awake, patient oriented x3 and no focal motor deficits Cranial Nerves: CN's II-XI intact bilaterally Cognition: normal cognition Speech: speech normal Gait: normal gait Motor: muscle tone normal throughout Sensory Exam: no sensory deficits noted Extrem General: full ROM and no calf tenderness Psych Appearance: grossly normal Mental Status: mental status grossly normal Speech and Movement: speech and movement normal Objective Labs 08/27/24 17:48 08/27/24 17:48 Labs: Laboratory Results - last 24 hr 08/27/24 08/27/24 08/27/24 17:48 17:53 17:54 WBC 12.5 H RBC 3.70 L Hgb 12.8 L Hct 38.3 L MCV 103.4 H MCH 34.7 H MCHC 33.5 RDW 12.9 Plt Count 313 Neut % (Auto) 81.7 H Lymph % (Auto) 7.2 L [place] % (Auto) 9.0 Eos % (Auto) 1.4 L Baso % (Auto) 0.7 Neut # (Auto) 50336 H Lymph # (Auto) 900 L [place] # (Auto) 1100 H Eos # (Auto) 200 Baso # (Auto) 100 VBG pH 7.40 VBG pCO2 42.3 L VBG pO2 22 L VBG HCO3 26 VBG Total CO2 26 VBG O2 Saturation 38 L VBG Base Excess 0.8 FiO2 % Sodium 133 L Potassium 4.4 Chloride 100 Carbon Dioxide 25 BUN 20 Creatinine 0.99 Estimated GFR > 60 BUN/Creatinine Ratio 20.2 Glucose 129 H Lactate 1.9 Calcium 9.4 Magnesium 1.9 Total Bilirubin 0.7 AST 31 ALT 23 Alkaline Phosphatase 167 H Troponin I < 0.012 NT-Pro-B Natriuret Pep 2100 H Total Protein 7.4 Albumin 3.8 Globulin 3.6 Albumin/Globulin Ratio 1.1 Procalcitonin 0.144 Urine Color Urine Appearance Urine pH Ur Specific [place] Urine Protein Urine Glucose (UA) Urine Ketones Urine Occult Blood Urine Nitrate Urine Bilirubin Urine Urobilinogen Ur Leukocyte Esterase Urine RBC Urine WBC Ur Squamous Epith Cells Amorphous Sediment Urine Bacteria Ur Culture Indicated? Vol Urine Centrifuged Chlamy pneumoniae PCR Not detected Adenovirus (PCR) Not detected B. pertussis DNA (PCR) Not detected B.parapertussis DNA PCR Not detected Coronavirus OC43 (PCR) Not detected Coronavirus HKU1 (PCR) Not detected Coronavirus 229E (PCR) Not detected SARS-CoV-2 (PCR) Not detected Coronavirus NL63 (PCR) Not detected Human Metapneumovir PCR Not detected Influenza Type A (PCR) Not detected Influenza Type B (PCR) Not detected M. pneumoniae (PCR) Not detected Parainfluenza 1 (PCR) Not detected Parainfluenza 2 (PCR) Not detected Parainfluenza 3 (PCR) Not detected Parainfluenza 4 (PCR) Not detected RSV (PCR) Not detected Entero/Rhino (PCR) Not detected 08/27/24 18:50 WBC RBC Hgb Hct MCV MCH MCHC RDW Plt Count Neut % (Auto) Lymph % (Auto) [place] % (Auto) Eos % (Auto) Baso % (Auto) Neut # (Auto) Lymph # (Auto) [place] # (Auto) Eos # (Auto) Baso # (Auto) VBG pH VBG pCO2 VBG pO2 VBG HCO3 VBG Total CO2 VBG O2 Saturation VBG Base Excess FiO2 % Sodium Potassium Chloride Carbon Dioxide BUN Creatinine Estimated GFR BUN/Creatinine Ratio Glucose Lactate Calcium Magnesium Total Bilirubin AST ALT Alkaline Phosphatase Troponin I NT-Pro-B Natriuret Pep Total Protein Albumin Globulin Albumin/Globulin Ratio Procalcitonin Urine Color Yellow Urine Appearance Clear Urine pH 6.5 Ur Specific [place] <=1.005 Urine Protein Negative Urine Glucose (UA) Negative Urine Ketones Negative Urine Occult Blood Negative Urine Nitrate Negative Urine Bilirubin Negative Urine Urobilinogen 0.2 Ur Leukocyte Esterase Negative Urine RBC None seen Urine WBC None seen Ur Squamous Epith Cells None seen Amorphous Sediment 1+ Urine Bacteria None seen Ur Culture Indicated? Cult not indicated Vol Urine Centrifuged 10ml (spun) Chlamy pneumoniae PCR Adenovirus (PCR) B. pertussis DNA (PCR) B.parapertussis DNA PCR Coronavirus OC43 (PCR) Coronavirus HKU1 (PCR) Coronavirus 229E (PCR) SARS-CoV-2 (PCR) Coronavirus NL63 (PCR) Human Metapneumovir PCR Influenza Type A (PCR) Influenza Type B (PCR) M. pneumoniae (PCR) Parainfluenza 1 (PCR) Parainfluenza 2 (PCR) Parainfluenza 3 (PCR) Parainfluenza 4 (PCR) RSV (PCR) Entero/Rhino (PCR) Assessment & Plan Assessment & Plan narrative: Acute respiratory failure with hypoxia,?most likely due to bilateral community-acquired pneumonia. -Oxygen supplement to keep his oxygenation greater than 92% -Albuterol when necessary, Tessalon 100mg po QID prn -We'll put the patient on BiPAP and ABG monitoring Sepsis Community acquired pneumonia -Admit to ICU -oxygen supplement to keep oxygenation greater than 92% -Empiric antibiotics ceftriaxone and azithromycin -continue nebulizer breathing treatments w/ Albuterol q4H as needed -2 sets of blood cultures prior to antibiotics Hypothyroidism. Restart levothyroxine. Hyperlipidemia. Restart Zocor. CAD. Restart statins and aspirin. BPH. Restart Flomax. Time-Based Coding :: [TOTAL MINUTES] spent with patient and on the chart (including review of chart, obtaining history, exam, reviewing outside data, placing orders, documenting exam and treatment plan, and counseling patient) on [DATE]. Quality VTE Deep Vein Thrombosis/Pulmonary Embolism Present on Admission: No MIPS - Admit I confirm the patient?s Advance Care Plan is present, Code status is documented, Surrogate decision maker is in patient?s record [If Yes, STOP here]: Yes MIPS - Meds 'Current medications' to include all prescriptions, [id number] products, herbals, cannabis/cannabidiol products, and vitamin/mineral/dietary (nutritional) supplements. I have utilized all available resources to obtain, update, or review the patient?s current medications. [If Yes, STOP here]: Yes
[2024-08-27] MEDS: ATORVASTATIN 20 MG TABLET 10 MG PO (22:39)
[2024-08-27] MEDS: TAMSULOSIN 0.4 MG CAPSULE PO (22:40)
[2024-08-27 22:49] LABS: Thyroid Stimulating Hormone 3.13 uIU/mL (0.47-4.68)
--- NOTE | 2024-08-27 23:36 | RT ---
Placed on CPAP for tachypnea and hypoxemia. Patient previously on 10L oxymask with RR in the high 30s to 40s. Room air saturations of 73%.
[2024-08-27] MEDS: BENZONATATE 100 MG CAPSULE PO (23:39)
[2024-08-27] MEDS: BENZOCAINE/MENTHOL 1 LOZ PKT 1 EACH PO (23:39)
[2024-08-28] VITALS (24 sets, daily range): BP systolic 109–175; BP diastolic 58–72; PULSE 71–96; RESP 18–44; TEMP 31–36.8; O2SAT 86–98; BMI 22.6
[2024-08-28 00:23] LABS: MRSA (Nasal) PCR NOT DETECTED (Not Detect)
--- NOTE | 2024-08-28 06:08 | PC.NURSE ---
[employer] Driving Note-Patient admitted to ICU at 2114. A/Ox4, able to transfer self to bed. Transported on Oximask, then placed on Cpap at 7 and 35% FIO2, SpO2 >94% RR 30s, crackles bases, dry hacking cough, meds given as ordered. SR, VSS, denies pain.
[2024-08-28] MEDS: LEVOTHYROXINE 25 MCG TABLET PO (06:23)
[2024-08-28 08:42] LABS: Alanine Aminotransferase 14 IU/L (<50); Albumin 2.4 g/dL (3.5-5.0); Albumin Globulin Ratio 0.8 (1.0-2.8); Alkaline Phosphatase 122 U/L (38-126); Aspartate Aminotransferase 25 IU/L (17-59); BUN Creatinine Ratio 19.8 (6-22); Bilirubin Total 0.5 mg/dL (0.2-1.3); Blood Urea Nitrogen 16 mg/dL (9-20); Calcium 7.6 mg/dL (8.4-10.2); Carbon Dioxide 24 mmol/L (22-32); Chloride 103 mmol/L (98-107); Estimated Glomerular Filt Rate > 60 mL/min (>60); Glucose 104 mg/dL (80-110); HEMOLYSIS < 15 (0-50); Magnesium 1.6 mg/dL (1.6-2.3); Potassium 3.4 mmol/L (3.4-5.1); Sodium 131 mmol/L (137-145); Total Protein 5.4 g/dL (6.3-8.2)
[2024-08-28] MEDS: DOCUSATE 100 MG CAPSULE 200 MG PO (08:59)
[2024-08-28] MEDS: TAMSULOSIN 0.4 MG CAPSULE PO (08:59)
[2024-08-28] MEDS: ASPIRIN EC 81 MG TABLET PO (08:59)
[2024-08-28] MEDS: SODIUM CHLORIDE 0.9% FLUSH 10 ML IV ×2 (09:00→21:14)
[2024-08-28] MEDS: CHOLECALCIFEROL (VITAMIN D3) 1,000 UNIT TABLET 2000 UNIT PO (09:00)
[2024-08-28] MEDS: ENOXAPARIN 40 MG/0.4 ML SYRINGE SUBCUT (09:00)
--- NOTE | 2024-08-28 10:39 | DI.CT.S_ITS ---
PROCEDURE: CT ANGIO CHEST PE PROTOCOL INDICATIONS: hypoxia, PE vs ILD vs CHF TECHNIQUE: After the administration of intravenous contrast, 2 mm thick sections acquired from the pulmonary apices to the posterior costophrenic angles. 3-dimensional maximum intensity projection (MIP) coronal and sagittal reformats were then acquired through the thorax. For radiation dose reduction, the following was used: automated exposure control, adjustment of mA and/or kV according to patient size. COMPARISON: [facility], CR, XR CHEST 1V, 08/27/2024, 17:51. FINDINGS: Image quality: Diagnostic. Pulmonary arteries: Pulmonary arteries are normal in size, and demonstrate no intraluminal filling defects to suggest central pulmonary embolism. Lower Neck: No enlarged lymph nodes. Thyroid: No thyroid nodules which require sonographic follow up, per consensus guidelines. Axillae: No enlarged lymph nodes. Chest Wall: Unremarkable. Bones: Unremarkable. Lungs and Pleura: No pneumothorax or pleural effusions. Diffuse bilateral reticulations with traction bronchiectasis and areas of honeycombing, worst at the right lung base. Biapical pleural-parenchymal scarring. Ground-glass opacities are seen throughout the majority of the left lung. Heart: Heart size is mildly enlarged. No pericardial effusion. Mild to moderate coronary artery calcifications. Thoracic Vessels: No aortic aneurysm. Mediastinum and Pratima: Mildly enlarged mediastinal lymph nodes are seen, the largest of which measures up to 1.2 cm in short axis diameter in the precarinal region (5/50). Esophagus: No wall thickening. Small hiatal hernia. Upper Abdomen: Visualized upper abdomen solid organs and bowel loops appear normal. IMPRESSION: 1. No acute pulmonary embolus. 2. Extensive bilateral pulmonary reticulations, traction bronchiectasis, and honeycombing consistent with chronic interstitial lung disease. 3. Ground-glass opacities in the left lung are nonspecific but may represent superimposed edema or pneumonia versus findings related to interstitial lung disease. Approved by: John Lagos M.D. on 08/28/2024 at 11:52
--- NOTE | 2024-08-28 11:35 | PT.IIE ---
Current Diagnoses Sepsis, unspecified organism (08/27/24) Physical Therapy Inpatient Evaluation/Re-Eval M1 PT/OT-IP Prior Functional Status Start: 08/28/24 13:38 Freq: NEEDED Status: Active Protocol: Document 08/28/24 11:35 AB (Rec: 08/28/24 13:52 AB [id number]) Medical Review Prior Functional Status Medical History Reviewed Yes Communication able to make needs known Mobility and Gait pt stated that he was independent with all mobilities and ambulation without AD; pt stated that he was pretty active prior to hospitalization Social History Household Members spouse Living Arrangements House Number of Floors (Floors) Two Floors Number of Stairs To Enter/Railing? 18 steps L rail ascending ( pt stated that he goes upstairs to play bridge) has 5 steps wide B rails to enter the house; bedroom on main level of the house Home Environment High Toilet,Walk in Shower, Built-In Shower Seat Home Equipment Four Wheel Walker,Hand Held Shower,Grab Bars In Shower Additional Social History Comment pt has a ski pole M2 PT-IP Current Condition Start: 08/28/24 13:38 Freq: NEEDED Status: Active Protocol: Document 08/28/24 11:35 AB (Rec: 08/28/24 13:52 AB [id number]) Physical Therapy Current Condition Current Condition Evaluation Date 08/28/24 Treatment Diagnosis PNA; respiratory failure; difficulty in walking Onset Date 08/27/24 M3 PT-IP Subjective Start: 08/28/24 13:38 Freq: NEEDED Status: Active Protocol: Document 08/28/24 11:35 AB (Rec: 08/28/24 13:52 [id number]) Subjective Physical Therapy Visit Type Type Initial Evaluation Visit Start Time 11:35 Visit Stop Time 12:15 Number of HARDWARE SALES ASSISTANT Visits 0 Physical Therapy Visit Comments Patient Comments agreeable to do PT Therapy Pain Assessment Pain Present Pain Present Denied Pain M4 PT-IP Mobility and Gait Start: 08/28/24 13:38 Freq: NEEDED Status: Active Protocol: Document 08/28/24 11:35 AB (Rec: 08/28/24 13:52 AB [id number]) PT-Bed Mobility Assessment Supine to Sit Supine to Sit Standby Assistance PT-Transfer Assessment Sit to and From Stand Sit to and from Stand Contact Guard Assistance,1 Person Assistance,Use of Upper Extremities Equipment Transfer Assistive Device Gait Belt,Front Wheeled Walker Orthotic/Prosthetic Devices or Brace: No Transfers Transfer Destination Chair Transfer Technique Stand Step Pivot Transfer Ability Level of Assist Contact Guard Assistance,1 Person Assistance,Use of Upper Extremities Comments Mobility Comments pt supine in bed and agreeable to do PT. pt's spouse in room. obtained PLOF and home set up. O2 sat: 96% at rest with 10L/min supplemental O2. BP: 153/68. VT: 92. pt completed supine to sit SBA . able to sit on EOB SBA. (+) SOB. O2 sat decreased to 87- 88%. remained at 87-88% even after ~ 5 min of seated rest break and cued for deep breathing. nuse adjusted O2 to 12L/min. O2 sat increased to 92%. completed sit to stand CGA and step transfer to chair using FWW CGA. O2 sat checked:74%. cued pt for deep breathing and O2 sat increased to 77%. nurse in room and adjusted O2 to 14L/min. pt rested and o2 sat increased to 96%. positioned pt on the chair. call light and table placed within reach. no ambulation at this time due to pt's low O2 sat with activity and needed increase time to recover. nurse aware. PT-Balance Assessment Sitting Balance and Reactions Static Sitting Balance Ability Good Dynamic Sitting Balance Ability Good Standing Balance and Reactions Static Standing Balance Ability Good Dynamic Standing Balance Ability Fair Device Used FWW M5 PT-IP Objective Assessments Start: 08/28/24 13:38 Freq: NEEDED Status: Active Protocol: Document 08/28/24 11:35 AB (Rec: 08/28/24 13:52 AB [id number]) Orientation Orientation/Cognition Level of Alertness Alert Orientation Name,Place,Situation Language Function Ability Hard of Hearing Safety Awareness Decreased Safety Awareness Memory Description No Deficits Noted Gross Range of Motion Lower Extremity ROM Assessment Within Functional Limits Strength Lower Extremity Strength Assessment Within Functional Limits Coordination Assessment Gross Coordination Gross Coordination WNL Sensation Assessment Sensation Gross Sensation WNL Muscle Tone Muscle Tone WNL Yes M6 PT-IP Treatment Start: 08/28/24 13:38 Freq: NEEDED Status: Active Protocol: Document 08/28/24 11:35 AB (Rec: 08/28/24 13:52 AB [id number]) Physical Therapy Treatment Education Education Provided Safety M7 PT-IP Assessment and Plan Start: 08/28/24 13:38 Freq: NEEDED Status: Active Protocol: Document 08/28/24 11:35 AB (Rec: 08/28/24 13:52 AB [id number]) PT Summary Assessment and Plan Potential Rehabilitation Potential Fair Status of Condition at Evaluation Unstable Summary Impairments Pain,ROM,Strength,Balance, Coordination,Sensation,Tone, Cognition,Bed Mobility, Transfers,Gait,Activity Tolerance Assessment Summary Pt is an 89 y/o M who presented with SOB. pt admitted for PNA and acute respiratory failure. pt requiring CGA for bed mobility and transfers. pt did not ambulate with PT today due to pt's decrease in o2 sat to 74% with transfers. will continue PT to improve pt's activity tolerance and increase mobility independence . Goals Bed Mobility Goal Independent Transfer Goal Independent,Front Wheeled Walker Gait Goal Independent,Front Wheel Walker Gait Distance 100 Other Goals improve transfers, ambulation using 4WW/LRAD/without AD 250 ft SBA up/down 5 steps 1 rail SBA Days to Meet Goals 10 Frequency of Treatment Frequency Of Treatment Once a Day Treatment Plan Physical Therapy Treatment Plan Bed Mobility Training,Transfer Training,Gait Training, Therapeutic Exercise,Balance Retraining,Discharge Planning, Hot or Cold Pack,Neuromuscular Re-ed,Coordination Retraining Precautions Other Precautions O2 sat Recommendations To Nursing Amount of Assist Needed 1 Person Assist Discharge Recommendations PT Discharge Recommendations Home with Assistance,Home Health Transportation Needs at Discharge Private Vehicle,Wheelchair/ Cabulance
[2024-08-28] MEDS: POTASSIUM CHLORIDE 20 MEQ TAB 40 MEQ PO (12:46)
[2024-08-28] MEDS: predniSONE 20 MG TABLET 60 MG PO (13:01)
--- NOTE | 2024-08-28 13:47 | OT.IPNOTE ---
Spoke to nursing and agreed to see pt tomorrow.
--- NOTE | 2024-08-28 14:29 | CM.DANOTE ---
Initial DCP Assessment Note Pt is a 89 yo male, resident of [place], arrives from PCP's office, admitted for management of RANDAL community acquired PNA. PCP: Corey Watkins Payer: [employer] Reviewed chart, pt discussed in multidisciplinary rounds this morning. Patient on high flow. Therapy has cleared pt for return home w/family to assist, recommendation for HH. No barriers identified at this time to patient's safe discharge home w/family to assist once medically stable for such; close outpatient f/u recommended. CM team will plan to follow clinical course closely and discuss recommendation for HH services with patient and spouse before discharge. ALFIE Musa Discharge Planning/Care Management CM Discharge Assessment Start: 08/28/24 14:18 Freq: Status: Active Protocol: Document 08/28/24 14:18 BELLE (Rec: 08/28/24 14:29 BELLE [id number]) Discharge Planning Assessment Assigned Heating Systems Installer ALFIE Barfield DPOA/Assigned Designee Name Kori Lehman, spouse Contact Information [phone] Advance Directives? Yes: [place] Advance Directives on File No History Provided By Patient,Medical Record Prior Living Arrangements House Household Members spouse Type of transporation used prior to Drives own vehicle admit Independent with ADL's Yes Is patient alert and oriented? Yes Needs Assistance With Home Chores / Shopping Patient/Family Preference Home with Home Health Barriers to Discharge No Discharge Plan Home with Home Health Transportation Arrangement Family Additional Comment Will plan to discuss PT's recommendation from home health with patient and spouse
--- NOTE | 2024-08-28 15:26 | P.PN_ITS ---
Subjective Subjective Interval history: 89 M admitted with 1 week of reported dyspnea. Performed CTA today given degree of hypoxia. There was no PE, but showed probable ILD. TTE was performed today, RVSP elevated at 56, but no RV dysfunction, normal LV function. He was started on prednisone, and will continue antibiotics today. Exam Vital Signs (past 8 hours): - 08/28/24 07:38 08/28/24 08:00 08/28/24 08:00 Temperature Pulse Rate 87 Respiratory Rate 24 Blood Pressure 142/64 H Pulse Oximetry 97 Oxygen Delivery Method Oximask Oximask Oxygen Flow Rate 12 08/28/24 08:00 08/28/24 09:56 08/28/24 10:00 Temperature 98.2 F Pulse Rate 78 Respiratory Rate 24 Blood Pressure 124/58 L Pulse Oximetry 98 97 Oxygen Delivery Method Oxygen Flow Rate 10 08/28/24 10:00 08/28/24 10:01 08/28/24 10:36 Temperature Pulse Rate 81 Respiratory Rate 22 Blood Pressure Pulse Oximetry 97 97 92 Oxygen Delivery Method Oxygen Flow Rate 8 6 08/28/24 11:44 08/28/24 11:58 08/28/24 11:58 Temperature Pulse Rate 94 H Respiratory Rate 36 H Blood Pressure 158/67 H Pulse Oximetry 95 Oxygen Delivery Method Oxygen Flow Rate 10 08/28/24 12:00 08/28/24 12:00 08/28/24 14:00 Temperature Pulse Rate 96 H 82 Respiratory Rate 44 H 23 Blood Pressure Pulse Oximetry 86 L 97 Oxygen Delivery Method Oximask Oxygen Flow Rate 08/28/24 14:00 08/28/24 14:12 08/28/24 14:12 Temperature 98.1 F Pulse Rate 88 Respiratory Rate 39 H Blood Pressure 109/58 L Pulse Oximetry 96 Oxygen Delivery Method Oxygen Flow Rate Fraction of Inspired Oxygen 35 Oxygen Delivery Method Oximask Oxygen Flow Rate 10 Narrative Exam Narrative: Gen: no acute distress, WDWN CV: RRR no m/r/g Pulm: diffuse crackles most lung harrington Abd: S NT ND Ext: no edmea, borderline clubbing of fingers Objective Labs 08/27/24 17:48 08/28/24 07:50 Labs: Laboratory Results - last 24 hr 08/27/24 08/27/24 08/27/24 17:48 17:53 17:54 WBC 12.5 H RBC 3.70 L Hgb 12.8 L Hct 38.3 L MCV 103.4 H MCH 34.7 H MCHC 33.5 RDW 12.9 Plt Count 313 Neut % (Auto) 81.7 H Lymph % (Auto) 7.2 L [place] % (Auto) 9.0 Eos % (Auto) 1.4 L Baso % (Auto) 0.7 Neut # (Auto) 24758 H Lymph # (Auto) 900 L [place] # (Auto) 1100 H Eos # (Auto) 200 Baso # (Auto) 100 VBG pH 7.40 VBG pCO2 42.3 L VBG pO2 22 L VBG HCO3 26 VBG Total CO2 26 VBG O2 Saturation 38 L VBG Base Excess 0.8 FiO2 % Sodium 133 L Potassium 4.4 Chloride 100 Carbon Dioxide 25 BUN 20 Creatinine 0.99 Estimated GFR > 60 BUN/Creatinine Ratio 20.2 Glucose 129 H Lactate 1.9 Calcium 9.4 Magnesium 1.9 Total Bilirubin 0.7 AST 31 ALT 23 Alkaline Phosphatase 167 H Troponin I < 0.012 NT-Pro-B Natriuret Pep 2100 H Total Protein 7.4 Albumin 3.8 Globulin 3.6 Albumin/Globulin Ratio 1.1 Procalcitonin 0.144 TSH 3.13 Urine Color Urine Appearance Urine pH Ur Specific [place] Urine Protein Urine Glucose (UA) Urine Ketones Urine Occult Blood Urine Nitrate Urine Bilirubin Urine Urobilinogen Ur Leukocyte Esterase Urine RBC Urine WBC Ur Squamous Epith Cells Amorphous Sediment Urine Bacteria Ur Culture Indicated? Vol Urine Centrifuged Nasal Screen MRSA (PCR) Chlamy pneumoniae PCR Not detected Adenovirus (PCR) Not detected B. pertussis DNA (PCR) Not detected B.parapertussis DNA PCR Not detected Coronavirus OC43 (PCR) Not detected Coronavirus HKU1 (PCR) Not detected Coronavirus 229E (PCR) Not detected SARS-CoV-2 (PCR) Not detected Coronavirus NL63 (PCR) Not detected Human Metapneumovir PCR Not detected Influenza Type A (PCR) Not detected Influenza Type B (PCR) Not detected M. pneumoniae (PCR) Not detected Parainfluenza 1 (PCR) Not detected Parainfluenza 2 (PCR) Not detected Parainfluenza 3 (PCR) Not detected Parainfluenza 4 (PCR) Not detected RSV (PCR) Not detected Entero/Rhino (PCR) Not detected 08/27/24 08/27/24 08/28/24 18:50 22:50 07:50 WBC RBC Hgb Hct MCV MCH MCHC RDW Plt Count Neut % (Auto) Lymph % (Auto) [place] % (Auto) Eos % (Auto) Baso % (Auto) Neut # (Auto) Lymph # (Auto) [place] # (Auto) Eos # (Auto) Baso # (Auto) VBG pH VBG pCO2 VBG pO2 VBG HCO3 VBG Total CO2 VBG O2 Saturation VBG Base Excess FiO2 % Sodium 131 L Potassium 3.4 Chloride 103 Carbon Dioxide 24 BUN 16 Creatinine 0.81 Estimated GFR > 60 BUN/Creatinine Ratio 19.8 Glucose 104 Lactate Calcium 7.6 L Magnesium 1.6 Total Bilirubin 0.5 AST 25 ALT 14 Alkaline Phosphatase 122 Troponin I NT-Pro-B Natriuret Pep Total Protein 5.4 L Albumin 2.4 L Globulin 3.0 Albumin/Globulin Ratio 0.8 L Procalcitonin TSH Urine Color Yellow Urine Appearance Clear Urine pH 6.5 Ur Specific [place] <=1.005 Urine Protein Negative Urine Glucose (UA) Negative Urine Ketones Negative Urine Occult Blood Negative Urine Nitrate Negative Urine Bilirubin Negative Urine Urobilinogen 0.2 Ur Leukocyte Esterase Negative Urine RBC None seen Urine WBC None seen Ur Squamous Epith Cells None seen Amorphous Sediment 1+ Urine Bacteria None seen Ur Culture Indicated? Cult not indicated Vol Urine Centrifuged 10ml (spun) Nasal Screen MRSA (PCR) Not detected Chlamy pneumoniae PCR Adenovirus (PCR) B. pertussis DNA (PCR) B.parapertussis DNA PCR Coronavirus OC43 (PCR) Coronavirus HKU1 (PCR) Coronavirus 229E (PCR) SARS-CoV-2 (PCR) Coronavirus NL63 (PCR) Human Metapneumovir PCR Influenza Type A (PCR) Influenza Type B (PCR) M. pneumoniae (PCR) Parainfluenza 1 (PCR) Parainfluenza 2 (PCR) Parainfluenza 3 (PCR) Parainfluenza 4 (PCR) RSV (PCR) Entero/Rhino (PCR) PFSH Social History household members: spouse Smoking Status: Never smoker alcohol intake: current Assessment & Plan Assessment & Plan narrative: 1. Acute respiratory failure with hypoxia 2. Bacterial pneumonia 3. 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 chronic hypothyroidism 5. HLD 6. BPH Plan: - imaging consistent with ILD on CT. No PE noted. Will start prednisone 60 mg daily for now. Consider pulmonology consultation - continue with ceftriaxone and azithromycin for possible bacterial pneumonia given leukocytosis and acute respiratory symptoms - stop IV fluids - no diuresis based on fairly unremarkable TTE. RVSP elevated at 56, likely due to pulmonary disease. - continue home statin, levothyroxine, and flomax. - will very likely need home O2, ideally will get to O2 via nasal cannula with activity (<6L) prior to discharge home. Code: DNR, surrogate is patient's spouse DVT: Lovenox daily Dispo: patient admitted under inpatient status. Likely discharge home, timing unclear depending on improvement in hypoxia. Additional history obtained via discussions with the patient's spouse. These discussions contributed to the creation of the above assessment and plan. I have reviewed patient's presenting documentation, labs, and imaging personally. Time-Based Coding :: [TOTAL MINUTES] spent with patient and on the chart (including review of chart, obtaining history, exam, reviewing outside data, placing orders, documenting exam and treatment plan, and counseling patient) on [DATE]. Quality VTE Deep Vein Thrombosis/Pulmonary Embolism Present on Admission: No
[2024-08-28] MEDS: ATORVASTATIN 20 MG TABLET 10 MG PO (21:11)
[2024-08-28] MEDS: cefTRIAXone 1,000 MG in SODIUM CHLORIDE 0.9% 100 ML 200 MG IV (21:12)
[2024-08-28] MEDS: AZITHROMYCIN 500 MG in DEXTROSE 5% IN WATER 250 ML 250 MG IV (21:12)
[2024-08-29] VITALS (21 sets, daily range): BP systolic 114–206; BP diastolic 58–86; PULSE 65–89; RESP 17–48; TEMP 36.3–36.8; O2SAT 81–97
[2024-08-29] MEDS: LEVOTHYROXINE 25 MCG TABLET PO (05:48)
--- NOTE | 2024-08-29 06:41 | PC.NURSE ---
pt has had an uneventful shift; he remains on 13l oxymask; he continues to desat to the low 80s w/ exertion but returns to >90% with coaching
[2024-08-29 08:49] LABS: Alanine Aminotransferase 21 IU/L (<50); Albumin 2.8 g/dL (3.5-5.0); Albumin Globulin Ratio 0.8 (1.0-2.8); Alkaline Phosphatase 173 U/L (38-126); Aspartate Aminotransferase 32 IU/L (17-59); BUN Creatinine Ratio 19.8 (6-22); Bilirubin Total 0.5 mg/dL (0.2-1.3); Blood Urea Nitrogen 19 mg/dL (9-20); Calcium 8.7 mg/dL (8.4-10.2); Carbon Dioxide 26 mmol/L (22-32); Chloride 101 mmol/L (98-107); Estimated Glomerular Filt Rate > 60 mL/min (>60); Globulin 3.3 g/dL (1.7-4.1); Glucose 119 mg/dL (80-110); HEMOLYSIS < 15 (0-50); Magnesium 2.1 mg/dL (1.6-2.3); Potassium 4.2 mmol/L (3.4-5.1); Sodium 131 mmol/L (137-145); Total Protein 6.1 g/dL (6.3-8.2)
[2024-08-29] MEDS: ASPIRIN EC 81 MG TABLET PO (09:19)
[2024-08-29] MEDS: DOCUSATE 100 MG CAPSULE 200 MG PO (09:19)
[2024-08-29] MEDS: SODIUM CHLORIDE 0.9% FLUSH 10 ML IV ×3 (09:20→21:39)
[2024-08-29] MEDS: CHOLECALCIFEROL (VITAMIN D3) 1,000 UNIT TABLET 2000 UNIT PO (09:20)
[2024-08-29] MEDS: TAMSULOSIN 0.4 MG CAPSULE PO (09:20)
[2024-08-29] MEDS: ENOXAPARIN 40 MG/0.4 ML SYRINGE SUBCUT (09:20)
[2024-08-29] MEDS: predniSONE 20 MG TABLET 60 MG PO (09:20)
--- NOTE | 2024-08-29 13:51 | P.PN_ITS ---
Subjective Subjective Interval history: 89 M admitted with acute respiratory failure. Discussed with industrial design intern international affairs vice president, no changes recommended currently. CT consistent with IPF. Exam Vital Signs (past 8 hours): - 08/29/24 08:00 08/29/24 08:00 08/29/24 12:00 Temperature 97.5 F L 97.7 F Pulse Rate 73 81 Respiratory Rate 24 28 H Blood Pressure 146/73 H 160/77 H Pulse Oximetry 92 91 Oxygen Delivery Method Oximask Oxygen Flow Rate 13 14 08/29/24 13:36 Temperature Pulse Rate 88 Respiratory Rate Blood Pressure Pulse Oximetry 94 Oxygen Delivery Method Oxygen Flow Rate Fraction of Inspired Oxygen 35 Oxygen Delivery Method Oximask Oxygen Flow Rate 14 Narrative Exam Narrative: Gen: no acute distress, WDWN CV: RRR no m/r/g Pulm: diffuse crackles most lung harrington Abd: S NT ND Ext: no edmea, borderline clubbing of fingers Objective Labs 08/27/24 17:48 08/29/24 08:10 Labs: Laboratory Results - last 24 hr 08/29/24 08:10 Sodium 131 L Potassium 4.2 Chloride 101 Carbon Dioxide 26 BUN 19 Creatinine 0.96 Estimated GFR > 60 BUN/Creatinine Ratio 19.8 Glucose 119 H Calcium 8.7 Magnesium 2.1 Total Bilirubin 0.5 AST 32 ALT 21 Alkaline Phosphatase 173 H Total Protein 6.1 L Albumin 2.8 L Globulin 3.3 Albumin/Globulin Ratio 0.8 L PFSH Social History household members: spouse Smoking Status: Never smoker alcohol intake: current Assessment & Plan Assessment & Plan narrative: 1. Acute respiratory failure with hypoxia 2. 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 chronic hypothyroidism 5. HLD 6. BPH Plan: - imaging consistent with IPF on CT. Possible small infiltrate in left lung. No PE noted. Continue prednisone 60 mg daily for now. Discussed with industrial design intern today, no changes recommended at this time. - continue with ceftriaxone and azithromycin for possible bacterial pneumonia given leukocytosis and acute respiratory symptoms - stop IV fluids - no diuresis based on fairly unremarkable TTE. RVSP elevated at 56, likely due to pulmonary disease. - continue home statin, levothyroxine, and flomax. - will very likely need home O2, ideally will get to O2 via nasal cannula with activity prior to discharge home. Code: DNR, surrogate is patient's spouse DVT: Lovenox daily Dispo: patient admitted under inpatient status. Likely discharge home, timing unclear depending on improvement in hypoxia. Additional history obtained via discussions with the industrial design intern as noted above. These discussions contributed to the creation of the above assessment and plan. I have reviewed patient's presenting documentation, labs, and imaging personally. Time-Based Coding :: [TOTAL MINUTES] spent with patient and on the chart (including review of chart, obtaining history, exam, reviewing outside data, placing orders, documenting exam and treatment plan, and counseling patient) on [DATE]. Quality VTE Deep Vein Thrombosis/Pulmonary Embolism Present on Admission: No
--- NOTE | 2024-08-29 14:23 | PC.NURSE ---
Day Shift Note Pt on 14L oxymask with SPO2 mid-90s, desats to the low 80s with any activity with slow recovery time. Able to tolerate 14L HFNC for breakfast with sats upper 80s-low 90s. However, at lunch sats decreased to the 70s with no recovery on the HFNC, MD notified and RT called. Placed on heated HFNC at 50L and 50% FiO2. Pt reports feeling better and SpO2 in the 95-98% range. Denies pain, denies nausea. Call light within reach, using appropriately to make needs known.
--- NOTE | 2024-08-29 14:40 | PT.IPTN ---
Current Diagnoses Sepsis, unspecified organism (08/27/24) Physical Therapy Treatment Note M2 PT-IP Current Condition Start: 08/28/24 13:38 Freq: NEEDED Status: Active Protocol: Document 08/28/24 11:35 AB (Rec: 08/28/24 13:52 AB [id number]) Physical Therapy Current Condition Current Condition Evaluation Date 08/28/24 Treatment Diagnosis PNA; respiratory failure; difficulty in walking Onset Date 08/27/24 M3 PT-IP Subjective Start: 08/28/24 13:38 Freq: NEEDED Status: Active Protocol: Document 08/29/24 14:40 AB (Rec: 08/29/24 16:47 AB [id number]) Subjective Physical Therapy Visit Type Type Treatment Note Visit Start Time 14:40 Visit Stop Time 15:05 Number of OPERATIONAL RISK ANALYST Visits 0 Physical Therapy Visit Comments Patient Comments agreeable to do PT Therapy Pain Assessment Pain Present Pain Present Denied Pain M4 PT-IP Mobility and Gait Start: 08/28/24 13:38 Freq: NEEDED Status: Active Protocol: Document 08/29/24 14:40 AB (Rec: 08/29/24 16:47 AB [id number]) PT-Bed Mobility Assessment Supine to Sit Supine to Sit Standby Assistance PT-Transfer Assessment Sit to and From Stand Sit to and from Stand Contact Guard Assistance Equipment Transfer Assistive Device Gait Belt,Front Wheeled Walker Orthotic/Prosthetic Devices or Brace: No Transfers Transfer Destination Chair Transfer Technique Stand Step Pivot Transfer Ability Level of Assist Contact Guard Assistance,1 Person Assistance,Use of Upper Extremities Comments Mobility Comments pt supine in bed. pt with on heated high flow at 50% and O2 sat at 98%. pt completed supine to sit SBA. able to sit on EOB SBA. (+) SOB. O2 sat decreased to 84%. nurse increase O2 to 100% and O2 sat increased to 90-92% in ~ 5 sec. pt completed sit to stand CGA and step transfer to chair using FWW CGA. O2 sat with 100% heated high flow decreased to 88% but recovered to 94% in 2-3 sec. no further activities at this time due to decreasein O2 sat even with heated high flow at 100%. Nurse present during mobility and aware of pt's O2 sat. nurse put O2 back down to 50% after pt rested and o2 sat at 98% at end of PT session. positioned pt on the chair. call light and table placed within reach. M5 PT-IP Objective Assessments Start: 08/28/24 13:38 Freq: NEEDED Status: Active Protocol: Document 08/28/24 11:35 AB (Rec: 08/28/24 13:52 AB [id number]) Orientation Orientation/Cognition Level of Alertness Alert Orientation Name,Place,Situation Language Function Ability Hard of Hearing Safety Awareness Decreased Safety Awareness Memory Description No Deficits Noted Gross Range of Motion Lower Extremity ROM Assessment Within Functional Limits Strength Lower Extremity Strength Assessment Within Functional Limits Coordination Assessment Gross Coordination Gross Coordination WNL Sensation Assessment Sensation Gross Sensation WNL Muscle Tone Muscle Tone WNL Yes M6 PT-IP Treatment Start: 08/28/24 13:38 Freq: NEEDED Status: Active Protocol: Document 08/29/24 14:40 AB (Rec: 08/29/24 16:47 AB [id number]) Physical Therapy Treatment Education Education Provided Safety M7 PT-IP Assessment and Plan Start: 08/28/24 13:38 Freq: NEEDED Status: Active Protocol: Document 08/29/24 14:40 AB (Rec: 08/29/24 16:47 AB [id number]) PT Summary Assessment and Plan Potential Rehabilitation Potential Fair Summary Impairments Pain,ROM,Strength,Balance, Coordination,Sensation,Tone, Cognition,Bed Mobility, Transfers,Gait,Activity Tolerance Progress Towards Goals Slow Progress due to Medical Issues,Slow Progress due to Activity Tolerance Assessment Summary pt now on heated high flow 50% but increased to 100% with activity. O2 sat continues to decrease with activity even with heated high flow O2 supplement. activity limited due to decrease in O2 sat. pt needing CGA with transfers using FWW but not ambulation at this time due to decrease O2 sat even with just transfers. will continue to assess progress. Goals Bed Mobility Goal Independent Transfer Goal Independent,Front Wheeled Walker Gait Goal Independent,Front Wheel Walker Gait Distance 100 Other Goals improve transfers, ambulation using 4WW/LRAD/without AD 250 ft SBA up/down 5 steps 1 rail SBA Days to Meet Goals 10 Frequency of Treatment Frequency Of Treatment Once a Day Treatment Plan Physical Therapy Treatment Plan Bed Mobility Training,Transfer Training,Gait Training, Therapeutic Exercise,Balance Retraining,Discharge Planning, Hot or Cold Pack,Neuromuscular Re-ed,Coordination Retraining Precautions Other Precautions O2 sat Recommendations To Nursing Amount of Assist Needed 1 Person Assist Discharge Recommendations PT Discharge Recommendations Home with Assistance,Home Health Transportation Needs at Discharge Private Vehicle,Wheelchair/ Cabulance
--- NOTE | 2024-08-29 14:48 | OT.IPNOTE ---
Pt still on 14L of OT and desats after exertion but able to assist with his needs. Pt states wants to focus on PT and does not feel that OT is needed at this time. Able to give pt list for DME and information for energy conservation, no charge. Therefore discharge OT eval orders.
[2024-08-29] MEDS: ATORVASTATIN 20 MG TABLET 10 MG PO (20:41)
[2024-08-29] MEDS: AZITHROMYCIN 500 MG in DEXTROSE 5% IN WATER 250 ML 250 MG IV (21:20)
[2024-08-29] MEDS: cefTRIAXone 1,000 MG in SODIUM CHLORIDE 0.9% 100 ML 200 MG IV (21:22)
[2024-08-30] VITALS (22 sets, daily range): BP systolic 128–207; BP diastolic 59–91; PULSE 71–104; RESP 11–52; TEMP 36.4–36.8; O2SAT 90–99
[2024-08-30] MEDS: LEVOTHYROXINE 25 MCG TABLET PO (06:06)
[2024-08-30 08:45] LABS: Alanine Aminotransferase 24 IU/L (<50); Albumin 2.8 g/dL (3.5-5.0); Albumin Globulin Ratio 0.9 (1.0-2.8); Alkaline Phosphatase 165 U/L (38-126); Aspartate Aminotransferase 31 IU/L (17-59); BUN Creatinine Ratio 20.7 (6-22); Bilirubin Total 0.5 mg/dL (0.2-1.3); Blood Urea Nitrogen 19 mg/dL (9-20); Calcium 8.6 mg/dL (8.4-10.2); Carbon Dioxide 27 mmol/L (22-32); Chloride 103 mmol/L (98-107); Estimated Glomerular Filt Rate > 60 mL/min (>60); Glucose 100 mg/dL (80-110); HEMOLYSIS < 15 (0-50); Magnesium 2.1 mg/dL (1.6-2.3); Potassium 3.9 mmol/L (3.4-5.1); Sodium 132 mmol/L (137-145); Total Protein 5.8 g/dL (6.3-8.2)
[2024-08-30] MEDS: DOCUSATE 100 MG CAPSULE 200 MG PO (08:59)
[2024-08-30] MEDS: ENOXAPARIN 40 MG/0.4 ML SYRINGE SUBCUT (08:59)
[2024-08-30] MEDS: predniSONE 20 MG TABLET 60 MG PO (09:00)
[2024-08-30] MEDS: ASPIRIN EC 81 MG TABLET PO (09:00)
[2024-08-30] MEDS: CHOLECALCIFEROL (VITAMIN D3) 1,000 UNIT TABLET 2000 UNIT PO (09:00)
[2024-08-30] MEDS: TAMSULOSIN 0.4 MG CAPSULE PO (09:00)
[2024-08-30] MEDS: SODIUM CHLORIDE 0.9% FLUSH 10 ML IV ×2 (09:01→20:28)
--- NOTE | 2024-08-30 12:06 | CM.DPNOTE ---
DCP Note RENTAL BOATS CARETAKER reviewed EMR. Per chart review, pt remains on 50L high flow at this time. Per hospitalist in morning rounds, tailer in will see pt either today vs tomorrow for further acute recs. ADAIR unknown, pending hypoxia improvement, likely will dc home on home O2. PT rec home with assistance/HH. Will make HH referral closer to dc date if indicated. No barriers identified at this time to patient's safe discharge home w/family to assist once medically stable for such; close outpatient f/u recommended. CM team will plan to follow clinical course closely and discuss recommendation for HH services with patient and spouse before discharge. ALFIE Tuttle
--- NOTE | 2024-08-30 13:20 | PT.IPTN ---
Current Diagnoses Sepsis, unspecified organism (08/27/24) Physical Therapy Treatment Note M2 PT-IP Current Condition Start: 08/28/24 13:38 Freq: NEEDED Status: Active Protocol: Document 08/28/24 11:35 AB (Rec: 08/28/24 13:52 AB [id number]) Physical Therapy Current Condition Current Condition Evaluation Date 08/28/24 Treatment Diagnosis PNA; respiratory failure; difficulty in walking Onset Date 08/27/24 M3 PT-IP Subjective Start: 08/28/24 13:38 Freq: NEEDED Status: Active Protocol: Document 08/30/24 13:51 TS (Rec: 08/30/24 13:59 TS [id number]) Subjective Physical Therapy Visit Type Type Treatment Note Visit Start Time 13:20 Visit Stop Time 13:46 Number of WINDROWER OPERATOR Visits 1 Physical Therapy Visit Comments Patient Comments Pt found resting in bed on high flow o2, he is agreeable to PT. M4 PT-IP Mobility and Gait Start: 08/28/24 13:38 Freq: NEEDED Status: Active Protocol: Document 08/30/24 13:51 TS (Rec: 08/30/24 13:59 TS [id number]) PT-Bed Mobility Assessment Supine to Sit Supine to Sit Independent Scooting Scooting to Edge of Bed Independent PT-Transfer Assessment Sit to and From Stand Sit to and from Stand Contact Guard Assistance Equipment Transfer Assistive Device None,Gait Belt Orthotic/Prosthetic Devices or Brace: No Comments Mobility Comments Spo2 95% on high flow at 10%. He performs bed Ind. STS with no AD CGA. He ambulates in the room ~30'SBA/CGA with no AD. Pt desats to low 70's on high flow o2, nursing called in room to increase high flow rate, pt recovers after ~2mins . Pt was left in chair, all needs met. Gait Assessment Gait Gait Assistance Required: Standby Assistance,Contact Guard Assist Distance (Feet) 30 Assistive Devices Assistive Device None,Gait Belt Orthotic/Prosthetic Devices or Brace: No Gait Deviations General Gait Pattern Decreased Stride Length Factors Limiting Gait Function Factors Limiting Gait Function Decreased Activity Tolerance, Decreased Strength,Poor Balance,Poor Safety Awareness, Respiratory Distress PT-Balance Assessment Sitting Balance and Reactions Static Sitting Balance Ability Good Dynamic Sitting Balance Ability Good Standing Balance and Reactions Static Standing Balance Ability Good Dynamic Standing Balance Ability Fair Device Used FWW M5 PT-IP Objective Assessments Start: 08/28/24 13:38 Freq: NEEDED Status: Active Protocol: Document 08/28/24 11:35 AB (Rec: 08/28/24 13:52 AB [id number]) Orientation Orientation/Cognition Level of Alertness Alert Orientation Name,Place,Situation Language Function Ability Hard of Hearing Safety Awareness Decreased Safety Awareness Memory Description No Deficits Noted Gross Range of Motion Lower Extremity ROM Assessment Within Functional Limits Strength Lower Extremity Strength Assessment Within Functional Limits Coordination Assessment Gross Coordination Gross Coordination WNL Sensation Assessment Sensation Gross Sensation WNL Muscle Tone Muscle Tone WNL Yes M6 PT-IP Treatment Start: 08/28/24 13:38 Freq: NEEDED Status: Active Protocol: Document 08/30/24 13:51 TS (Rec: 08/30/24 13:59 TS [id number]) Physical Therapy Treatment Education Education Provided Safety M7 PT-IP Assessment and Plan Start: 08/28/24 13:38 Freq: NEEDED Status: Active Protocol: Document 08/30/24 13:51 TS (Rec: 08/30/24 13:59 TS [id number]) PT Summary Assessment and Plan Potential Rehabilitation Potential Fair Summary Impairments Pain,ROM,Strength,Balance, Coordination,Sensation,Tone, Cognition,Bed Mobility, Transfers,Gait,Activity Tolerance Progress Towards Goals Slow Progress due to Medical Issues,Slow Progress due to Activity Tolerance Assessment Summary Pt continues to be on high flow o2. He desats from mid 90 's at rest to low 70's with ambulation. He ambulates with no AD and some unsteadiness. PT continues to recommend home with assist and HHPT. Goals Bed Mobility Goal Independent Transfer Goal Independent,Front Wheeled Walker Gait Goal Independent,Front Wheel Walker Gait Distance 100 Other Goals improve transfers, ambulation using 4WW/LRAD/without AD 250 ft SBA up/down 5 steps 1 rail SBA Days to Meet Goals 10 Frequency of Treatment Frequency Of Treatment Once a Day Treatment Plan Physical Therapy Treatment Plan Bed Mobility Training,Transfer Training,Gait Training, Therapeutic Exercise,Balance Retraining,Discharge Planning, Hot or Cold Pack,Neuromuscular Re-ed,Coordination Retraining Precautions Other Precautions O2 sat Recommendations To Nursing Amount of Assist Needed 1 Person Assist Discharge Recommendations PT Discharge Recommendations Home with Assistance,Home Health Transportation Needs at Discharge Private Vehicle,Wheelchair/ Cabulance
--- NOTE | 2024-08-30 14:00 | PM.PN.1 ---
Subjective Subjective Interval history: 89 M admitted with acute respiratory failure. CT consistent with IPF. He is on heated high flow today, he feels relatively well. Exam Vital Signs (past 8 hours): - 08/30/24 07:00 08/30/24 08:00 08/30/24 10:00 Temperature 97.7 F Pulse Rate 80 104 H Respiratory Rate 35 H 28 H Blood Pressure 161/74 H 161/74 H Pulse Oximetry 95 92 Oxygen Delivery Method High Flow Nasal Cannula Oxygen Flow Rate 50 Fraction of Inspired Oxygen 0.5 08/30/24 11:44 Temperature 97.5 F L Pulse Rate 80 Respiratory Rate 20 Blood Pressure 167/76 H Pulse Oximetry 90 L Oxygen Delivery Method Oxygen Flow Rate 50 Fraction of Inspired Oxygen 0.5 Fraction of Inspired Oxygen 0.5 Oxygen Delivery Method High Flow Nasal Cannula Oxygen Flow Rate 50 Narrative Exam Narrative: Gen: no acute distress, WDWN CV: RRR no m/r/g Pulm: diffuse crackles most lung harrington Abd: S NT ND Ext: no edmea, borderline clubbing of fingers Objective Labs 08/27/24 17:48 08/30/24 08:18 Labs: Laboratory Results - last 24 hr 08/30/24 08:18 Sodium 132 L Potassium 3.9 Chloride 103 Carbon Dioxide 27 BUN 19 Creatinine 0.92 Estimated GFR > 60 BUN/Creatinine Ratio 20.7 Glucose 100 Calcium 8.6 Magnesium 2.1 Total Bilirubin 0.5 AST 31 ALT 24 Alkaline Phosphatase 165 H Total Protein 5.8 L Albumin 2.8 L Globulin 3.0 Albumin/Globulin Ratio 0.9 L PFSH Social History household members: spouse Smoking Status: Never smoker alcohol intake: current Assessment & Plan Assessment & Plan narrative: 1. Acute respiratory failure with hypoxia 2. 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 chronic hypothyroidism 5. HLD 6. BPH Plan: - imaging consistent with IPF on CT. Possible small infiltrate in left lung. No PE noted. Continue prednisone 60 mg daily for now. Discussed with respiratory therapist assistant today, no changes recommended at this time. - continue with ceftriaxone and azithromycin for possible bacterial pneumonia given leukocytosis and acute respiratory symptoms - stop IV fluids - no diuresis based on fairly unremarkable TTE. RVSP elevated at 56, likely due to pulmonary disease. - continue home statin, levothyroxine, and flomax. - will very likely need home O2, ideally will get to O2 via nasal cannula with activity prior to discharge home. Code: DNR, surrogate is patient's spouse DVT: Lovenox daily Dispo: patient admitted under inpatient status. Likely discharge home, timing unclear depending on improvement in hypoxia. Additional history obtained via discussions with the bedside RN, case briefer today. These discussions contributed to the creation of the above assessment and plan. I have reviewed patient's presenting documentation, labs, and imaging personally. Time-Based Coding :: [TOTAL MINUTES] spent with patient and on the chart (including review of chart, obtaining history, exam, reviewing outside data, placing orders, documenting exam and treatment plan, and counseling patient) on [DATE]. Quality VTE Deep Vein Thrombosis/Pulmonary Embolism Present on Admission: No
[2024-08-30] MEDS: ATORVASTATIN 20 MG TABLET 10 MG PO (20:14)
[2024-08-30] MEDS: cefTRIAXone 1,000 MG in SODIUM CHLORIDE 0.9% 100 ML 200 MG IV (20:18)
[2024-08-31] VITALS (33 sets, daily range): BP systolic 148–210; BP diastolic 57–95; PULSE 65–100; RESP 15–37; TEMP 36.4–37.4; O2SAT 84–96
[2024-08-31] MEDS: HYDRALAZINE 20 MG/ML VIAL 10 MG IV ×2 (04:05→20:13)
[2024-08-31] MEDS: LEVOTHYROXINE 25 MCG TABLET PO (05:20)
[2024-08-31 05:35] LABS: Alanine Aminotransferase 27 IU/L (<50); Alkaline Phosphatase 177 U/L (38-126); Aspartate Aminotransferase 35 IU/L (17-59); BUN Creatinine Ratio 23.9 (6-22); Bilirubin Total 0.5 mg/dL (0.2-1.3); Blood Urea Nitrogen 21 mg/dL (9-20); Calcium 8.9 mg/dL (8.4-10.2); Carbon Dioxide 27 mmol/L (22-32); Chloride 102 mmol/L (98-107); Estimated Glomerular Filt Rate > 60 mL/min (>60); Globulin 3.1 g/dL (1.7-4.1); Glucose 113 mg/dL (80-110); HEMOLYSIS < 15 (0-50); Magnesium 2.1 mg/dL (1.6-2.3); Potassium 3.9 mmol/L (3.4-5.1); Sodium 133 mmol/L (137-145); Total Protein 6.1 g/dL (6.3-8.2)
--- NOTE | 2024-08-31 08:45 | P.PN_ITS ---
Subjective Subjective Interval history: Summary: 89 M admitted with acute respiratory failure. CT consistent with IPF. He is on heated high flow today, he feels relatively well. S: He feels about the same. He is short of breath, on O2 HF. Exam Vital Signs (past 8 hours): - 08/31/24 01:41 08/31/24 02:00 08/31/24 04:00 Pulse Rate 88 81 75 Respiratory Rate 24 28 H Blood Pressure Pulse Oximetry 95 91 95 08/31/24 04:00 08/31/24 04:05 08/31/24 04:43 Pulse Rate 75 85 Respiratory Rate Blood Pressure 210/95 H 186/88 H 152/57 H Pulse Oximetry 08/31/24 07:50 Pulse Rate 82 Respiratory Rate 24 Blood Pressure Pulse Oximetry 91 Fraction of Inspired Oxygen 50 Oxygen Delivery Method High Flow Nasal Cannula Oxygen Flow Rate 50 Narrative Exam Narrative: NAD, alert and oriented. Fluent speech. Lungs are clear, normal rate and effort. On HF, slight increase in effort. Heart is regular, no murmur gallop or rub. Abdomen is soft, non distended. Extremities are free of edema. Objective Labs 08/27/24 17:48 08/31/24 04:35 Labs: Laboratory Results - last 24 hr 08/30/24 08/31/24 08:18 04:35 Sodium 132 L 133 L Potassium 3.9 3.9 Chloride 103 102 Carbon Dioxide 27 27 BUN 19 21 H Creatinine 0.92 0.88 Estimated GFR > 60 > 60 BUN/Creatinine Ratio 20.7 23.9 H Glucose 100 113 H Calcium 8.6 8.9 Magnesium 2.1 2.1 Total Bilirubin 0.5 0.5 AST 31 35 ALT 24 27 Alkaline Phosphatase 165 H 177 H Total Protein 5.8 L 6.1 L Albumin 2.8 L 3.0 L Globulin 3.0 3.1 Albumin/Globulin Ratio 0.9 L 1.0 PFSH Social History household members: spouse Smoking Status: Never smoker alcohol intake: current Assessment & Plan Assessment & Plan narrative: 1. Acute respiratory failure with hypoxia 2. 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 chronic hypothyroidism 5. HLD 6. BPH PLAN: - imaging consistent with IPF on CT. Possible small infiltrate in left lung. No PE noted. Continue prednisone 60 mg daily for now. Discussed with center machine operator today, no changes recommended at this time. - continue with ceftriaxone and azithromycin for possible bacterial pneumonia. - continue home statin, levothyroxine, and flomax. - will very likely need home O2, ideally will get to O2 via nasal cannula with activity prior to discharge home. Code: DNR, surrogate is patient's spouse DVT: Lovenox daily Dispo: patient admitted under inpatient status. Likely discharge home, timing unclear depending on improvement in hypoxia. Time-Based Coding :: [TOTAL MINUTES] spent with patient and on the chart (including review of chart, obtaining history, exam, reviewing outside data, placing orders, documenting exam and treatment plan, and counseling patient) on [DATE]. Quality VTE Deep Vein Thrombosis/Pulmonary Embolism Present on Admission: No
[2024-08-31] MEDS: ENOXAPARIN 40 MG/0.4 ML SYRINGE SUBCUT (09:11)
[2024-08-31] MEDS: DOCUSATE 100 MG CAPSULE 200 MG PO (09:11)
[2024-08-31] MEDS: CHOLECALCIFEROL (VITAMIN D3) 1,000 UNIT TABLET 2000 UNIT PO (09:11)
[2024-08-31] MEDS: predniSONE 20 MG TABLET 60 MG PO (09:12)
[2024-08-31] MEDS: ASPIRIN EC 81 MG TABLET PO (09:12)
[2024-08-31] MEDS: SODIUM CHLORIDE 0.9% FLUSH 10 ML IV ×2 (09:12→20:15)
[2024-08-31] MEDS: TAMSULOSIN 0.4 MG CAPSULE PO (09:12)
--- NOTE | 2024-08-31 11:40 | PT.IPTN ---
Current Diagnoses Sepsis, unspecified organism (08/27/24) Physical Therapy Treatment Note M2 PT-IP Current Condition Start: 08/28/24 13:38 Freq: NEEDED Status: Active Protocol: Document 08/28/24 11:35 AB (Rec: 08/28/24 13:52 AB [id number]) Physical Therapy Current Condition Current Condition Evaluation Date 08/28/24 Treatment Diagnosis PNA; respiratory failure; difficulty in walking Onset Date 08/27/24 M3 PT-IP Subjective Start: 08/28/24 13:38 Freq: NEEDED Status: Active Protocol: Document 08/31/24 11:40 AB (Rec: 08/31/24 13:29 AB [id number]) Subjective Physical Therapy Visit Type Type Treatment Note Visit Start Time 11:40 Visit Stop Time 12:11 Number of SAMPLE CASE PORTER Visits 0 Physical Therapy Visit Comments Patient Comments agreeable to do PT M4 PT-IP Mobility and Gait Start: 08/28/24 13:38 Freq: NEEDED Status: Active Protocol: Document 08/31/24 11:40 AB (Rec: 08/31/24 13:29 AB [id number]) PT-Bed Mobility Assessment Supine to Sit Supine to Sit Standby Assistance PT-Transfer Assessment Sit to and From Stand Sit to and from Stand Contact Guard Assistance,1 Person Assistance,Use of Upper Extremities Equipment Transfer Assistive Device Gait Belt,Front Wheeled Walker Orthotic/Prosthetic Devices or Brace: No Transfers Transfer Destination Chair Transfer Technique ambulated Transfer Ability Level of Assist Contact Guard Assistance, Minimal Assistance,1 Person Assistance,Use of Upper Extremities Comments Mobility Comments pt supine in bed and agreeable to do PT. pt on heated high flow O2 at 50%. O2 sat: 92%. pt completed supine to sit SBA. O2 sat decreased to 82%. pt cued for deep breathing. >2 min to get to 84%. nurse in room and flushed O2 to 100% and O2 sat increased to 95%. pt completed sit to stand CGA and ambulated in room ~ 10 ft. O2 sat maintained at 87%. pt wanting to walk again ~ 10 ft using CGA but midway O2 decreased to 50% and O2 sat decrerased to 70-74%. nurse gave pt another 100 % o2 flush and O2 increased to 90%. pt sat back on the chair. positioned pt on the chair. call light and table placed within reach. nurse in room during PT session and adjust supplemental o2. Gait Assessment Gait Gait Assistance Required: Contact Guard Assist,Minimum Assistance Distance (Feet) 20 Able to Maintain Weight Bearing Status Yes During Gait Assistive Devices Assistive Device Gait Belt,Front Wheeled Walker Orthotic/Prosthetic Devices or Brace: No Gait Deviations General Gait Pattern Decreased Stride Length, Decreased Feet Clearance,Step- to Gait Factors Limiting Gait Function Factors Limiting Gait Function Decreased Activity Tolerance, Poor Balance,Poor Safety Awareness,Respiratory Distress M5 PT-IP Objective Assessments Start: 08/28/24 13:38 Freq: NEEDED Status: Active Protocol: Document 08/28/24 11:35 AB (Rec: 08/28/24 13:52 AB [id number]) Orientation Orientation/Cognition Level of Alertness Alert Orientation Name,Place,Situation Language Function Ability Hard of Hearing Safety Awareness Decreased Safety Awareness Memory Description No Deficits Noted Gross Range of Motion Lower Extremity ROM Assessment Within Functional Limits Strength Lower Extremity Strength Assessment Within Functional Limits Coordination Assessment Gross Coordination Gross Coordination WNL Sensation Assessment Sensation Gross Sensation WNL Muscle Tone Muscle Tone WNL Yes M6 PT-IP Treatment Start: 08/28/24 13:38 Freq: NEEDED Status: Active Protocol: Document 08/31/24 11:40 AB (Rec: 08/31/24 13:29 AB [id number]) Physical Therapy Treatment Education Education Provided Safety M7 PT-IP Assessment and Plan Start: 08/28/24 13:38 Freq: NEEDED Status: Active Protocol: Document 08/31/24 11:40 AB (Rec: 08/31/24 13:29 AB [id number]) PT Summary Assessment and Plan Potential Rehabilitation Potential Fair Summary Impairments Pain,ROM,Strength,Balance, Coordination,Sensation,Tone, Cognition,Bed Mobility, Transfers,Gait,Activity Tolerance Progress Towards Goals Slow Progress due to Medical Issues,Slow Progress due to Activity Tolerance Assessment Summary pt improving slowly with activity tolerance but continues to decrease O2 sat with activity : 70-74% with heated high flow at 50. o2 sat maintained at 87% with heated high flow at 100. will continue to work with pt to improve overall strength and activity tolerance. Goals Bed Mobility Goal Independent Transfer Goal Independent,Front Wheeled Walker Gait Goal Independent,Front Wheel Walker Gait Distance 100 Other Goals improve transfers, ambulation using 4WW/LRAD/without AD 250 ft SBA up/down 5 steps 1 rail SBA Days to Meet Goals 10 Frequency of Treatment Frequency Of Treatment Once a Day Treatment Plan Physical Therapy Treatment Plan Bed Mobility Training,Transfer Training,Gait Training, Therapeutic Exercise,Balance Retraining,Discharge Planning, Hot or Cold Pack,Neuromuscular Re-ed,Coordination Retraining Precautions Other Precautions O2 sat Recommendations To Nursing Amount of Assist Needed 1 Person Assist Discharge Recommendations PT Discharge Recommendations Home with Assistance,Home Health Transportation Needs at Discharge Private Vehicle,Wheelchair/ Cabulance
[2024-08-31] MEDS: AMLODIPINE 5 MG TABLET PO (12:45)
--- NOTE | 2024-08-31 16:36 | CM.DPNOTE ---
DCP Note CENTRAL SUPPLY TECHNICIAN reviewed EMR. Per chart review, pt remains on high flow oxygen at this time. Per hospitalist in morning rounds and chart review, no new changes/updates at this time. ADAIR unknown, pending hypoxia improvement, likely will dc home on home O2. PT rec home with assistance/HH. Will make HH referral closer to dc date if indicated. CM team will plan to follow clinical course closely and discuss recommendation for HH services with patient and spouse before discharge. ALFIE Tuttle
[2024-08-31] MEDS: ATORVASTATIN 20 MG TABLET 10 MG PO (20:13)
[2024-08-31] MEDS: cefTRIAXone 1,000 MG in SODIUM CHLORIDE 0.9% 100 ML 200 MG IV (20:14)
[2024-08-31] MEDS: MELATONIN 3 MG TABLET 9 MG PO (23:43)
[2024-08-31] MEDS: ACETAMINOPHEN 325 MG TABLET 650 MG PO (23:43)
[2024-09-01] VITALS (23 sets, daily range): BP systolic 125–177; BP diastolic 62–81; PULSE 75–100; RESP 18–52; TEMP 36.6–37.1; O2SAT 84–97
--- NOTE | 2024-09-01 06:42 | PC.NURSE ---
Sr. Pricing Analyst Note-Patient is oriented x4, but very fatigued and short of breath with activity, although denies distress. On HHF 50%/50L, SpO2 >90% at rest, but will desat to 80% requiring 100% O2 flush on HHF. BP at 1999 175/81, prn Hydralizine given for SBP >261-[id number] vital trends.
[2024-09-01] MEDS: LEVOTHYROXINE 25 MCG TABLET PO (07:15)
[2024-09-01 07:55] LABS: Alanine Aminotransferase 30 IU/L (<50); Albumin 2.7 g/dL (3.5-5.0); Albumin Globulin Ratio 0.8 (1.0-2.8); Alkaline Phosphatase 167 U/L (38-126); Aspartate Aminotransferase 34 IU/L (17-59); BUN Creatinine Ratio 27.5 (6-22); Bilirubin Total 0.5 mg/dL (0.2-1.3); Blood Urea Nitrogen 22 mg/dL (9-20); Calcium 8.8 mg/dL (8.4-10.2); Carbon Dioxide 28 mmol/L (22-32); Chloride 101 mmol/L (98-107); Estimated Glomerular Filt Rate > 60 mL/min (>60); Globulin 3.2 g/dL (1.7-4.1); Glucose 97 mg/dL (80-110); HEMOLYSIS < 15 (0-50); Magnesium 2.1 mg/dL (1.6-2.3); Potassium 3.6 mmol/L (3.4-5.1); Sodium 131 mmol/L (137-145); Total Protein 5.9 g/dL (6.3-8.2)
[2024-09-01] MEDS: ASPIRIN EC 81 MG TABLET PO (08:21)
[2024-09-01] MEDS: AMLODIPINE 5 MG TABLET PO (08:21)
[2024-09-01] MEDS: ENOXAPARIN 40 MG/0.4 ML SYRINGE SUBCUT (08:21)
[2024-09-01] MEDS: SODIUM CHLORIDE 0.9% FLUSH 10 ML IV ×2 (08:22→21:00)
[2024-09-01] MEDS: CHOLECALCIFEROL (VITAMIN D3) 1,000 UNIT TABLET 2000 UNIT PO (08:22)
[2024-09-01] MEDS: predniSONE 20 MG TABLET 60 MG PO (08:22)
[2024-09-01] MEDS: DOCUSATE 100 MG CAPSULE 200 MG PO (08:22)
[2024-09-01] MEDS: TAMSULOSIN 0.4 MG CAPSULE PO (08:22)
--- NOTE | 2024-09-01 12:26 | P.PN_ITS ---
Subjective Subjective Date Patient Seen: 09/01/24 Time Patient Seen: 08:55 Interval history: Summary: 89 M admitted with acute respiratory failure. CT consistent with IPF. He is on heated high flow today, he feels relatively well. S: He feels about the same. He is short of breath, on O2 HF. He asked about returning home though continues to desaturate to the 70s % range with minimal exertion Exam Vital Signs (past 8 hours): - 09/01/24 06:00 09/01/24 07:00 09/01/24 07:32 Temperature Pulse Rate 82 85 Respiratory Rate 18 Blood Pressure Pulse Oximetry 94 93 Oxygen Delivery Method Heated High Flow Oxygen Flow Rate Fraction of Inspired Oxygen 09/01/24 08:00 09/01/24 08:00 09/01/24 08:09 Temperature 97.8 F Pulse Rate 75 78 Respiratory Rate 52 H Blood Pressure 157/70 H Pulse Oximetry 96 97 84 L Oxygen Delivery Method Oxygen Flow Rate 50 Fraction of Inspired Oxygen 50 09/01/24 08:10 09/01/24 11:49 Temperature Pulse Rate 85 Respiratory Rate 22 Blood Pressure 157/70 H 157/70 H Pulse Oximetry 93 Oxygen Delivery Method Oxygen Flow Rate Fraction of Inspired Oxygen Fraction of Inspired Oxygen 50 SaO2/FiO2 Ratio 180 Oxygen Delivery Method Heated High Flow Oxygen Flow Rate 50 Narrative Exam Narrative: NAD, alert and oriented. Fluent speech. Lungs with scattered crackles. Good air movement, no wheezing. On HF, slight increase in effort. Heart is regular, no murmur gallop or rub. Abdomen is soft, non distended. Extremities are free of edema. Objective Labs 08/27/24 17:48 09/01/24 07:20 Labs: Laboratory Results - last 24 hr 09/01/24 07:20 Sodium 131 L Potassium 3.6 Chloride 101 Carbon Dioxide 28 BUN 22 H Creatinine 0.80 Estimated GFR > 60 BUN/Creatinine Ratio 27.5 H Glucose 97 Calcium 8.8 Magnesium 2.1 Total Bilirubin 0.5 AST 34 ALT 30 Alkaline Phosphatase 167 H Total Protein 5.9 L Albumin 2.7 L Globulin 3.2 Albumin/Globulin Ratio 0.8 L PFSH Social History household members: spouse Smoking Status: Never smoker alcohol intake: current Assessment & Plan Assessment & Plan narrative: 1. Acute respiratory failure with hypoxia 2. Bacterial pneumonia 3. 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 No prior history per family and patient. 4. Chronic hypothyroidism 5. HLD 6. BPH 7. DVT prophylaxis: Subcutaneous enoxaparin 8. Code status: DNR PLAN: - imaging consistent with IPF on CT. Possible small infiltrate in left lung. No PE noted. Continue prednisone 60 mg daily for now. Discussed with orchestra musician today, no changes recommended at this time. - continue with ceftriaxone and azithromycin for possible bacterial pneumonia. - continue home statin, levothyroxine, and flomax. - will very likely need home O2, ideally will get to O2 via nasal cannula with activity prior to discharge home. Code: DNR, surrogate is patient's spouse Dispo: patient admitted under inpatient status. Likely discharge home, timing unclear depending on improvement in hypoxia. Time-Based Coding :: [TOTAL MINUTES] spent with patient and on the chart (including review of chart, obtaining history, exam, reviewing outside data, placing orders, documenting exam and treatment plan, and counseling patient) on [DATE]. Quality VTE Deep Vein Thrombosis/Pulmonary Embolism Present on Admission: No
--- NOTE | 2024-09-01 13:32 | PT.IPTN ---
Current Diagnoses Sepsis, unspecified organism (08/27/24) Physical Therapy Treatment Note M2 PT-IP Current Condition Start: 08/28/24 13:38 Freq: NEEDED Status: Active Protocol: Document 08/28/24 11:35 AB (Rec: 08/28/24 13:52 AB [id number]) Physical Therapy Current Condition Current Condition Evaluation Date 08/28/24 Treatment Diagnosis PNA; respiratory failure; difficulty in walking Onset Date 08/27/24 M3 PT-IP Subjective Start: 08/28/24 13:38 Freq: NEEDED Status: Active Protocol: Document 09/01/24 13:56 TS (Rec: 09/01/24 14:09 TS [id number]) Subjective Physical Therapy Visit Type Type Treatment Note Visit Start Time 13:32 Visit Stop Time 13:55 Number of PRODUCTION SUPERVISOR Visits 1 Physical Therapy Visit Comments Patient Comments Pt found resting in bed, he is agreeable to PT. M4 PT-IP Mobility and Gait Start: 08/28/24 13:38 Freq: NEEDED Status: Active Protocol: Document 09/01/24 13:56 TS (Rec: 09/01/24 14:09 TS [id number]) PT-Bed Mobility Assessment Supine to Sit Supine to Sit Standby Assistance Scooting Scooting to Edge of Bed Standby Assistance PT-Transfer Assessment Sit to and From Stand Sit to and from Stand Contact Guard Assistance,1 Person Assistance,Use of Upper Extremities Equipment Transfer Assistive Device None,Gait Belt Orthotic/Prosthetic Devices or Brace: No Transfers Transfer Destination Chair Transfer Technique ambulated Transfer Ability Level of Assist Contact Guard Assistance, Minimal Assistance,1 Person Assistance,Use of Upper Extremities Comments Mobility Comments Pt on heated high flow o2 at 45%. O2 sat 91%. Pt sat up to EOB SBA, o2 desats to 83% on high flow. STS with no AD CGA, pt is unsteady initially in standing with no AD. He ambulstes ~5' with no AD, was unsteady, recommeded use of fWW. Pt ambulates another 10' SBA/CGA with FWW, requires ot sit in chair due to SOB and fatigue. Pt desats to low 70's , pt requires 100% flow to recover to low 90's after ~ 2mins. Pt was left in bed, all needs met. Gait Assessment Gait Gait Assistance Required: Standby Assistance,Contact Guard Assist Distance (Feet) 15 Assistive Devices Assistive Device Gait Belt,Front Wheeled Walker Gait Deviations General Gait Pattern Decreased Stride Length, Decreased Feet Clearance,Step- to Gait Factors Limiting Gait Function Factors Limiting Gait Function Decreased Activity Tolerance, Poor Balance,Poor Safety Awareness,Respiratory Distress PT-Balance Assessment Sitting Balance and Reactions Static Sitting Balance Ability Good Dynamic Sitting Balance Ability Good Standing Balance and Reactions Static Standing Balance Ability Good Dynamic Standing Balance Ability Fair Device Used FWW M5 PT-IP Objective Assessments Start: 08/28/24 13:38 Freq: NEEDED Status: Active Protocol: Document 08/28/24 11:35 AB (Rec: 08/28/24 13:52 AB [id number]) Orientation Orientation/Cognition Level of Alertness Alert Orientation Name,Place,Situation Language Function Ability Hard of Hearing Safety Awareness Decreased Safety Awareness Memory Description No Deficits Noted Gross Range of Motion Lower Extremity ROM Assessment Within Functional Limits Strength Lower Extremity Strength Assessment Within Functional Limits Coordination Assessment Gross Coordination Gross Coordination WNL Sensation Assessment Sensation Gross Sensation WNL Muscle Tone Muscle Tone WNL Yes M6 PT-IP Treatment Start: 08/28/24 13:38 Freq: NEEDED Status: Active Protocol: Document 09/01/24 13:56 TS (Rec: 09/01/24 14:09 TS [id number]) Physical Therapy Treatment Education Education Provided Safety M7 PT-IP Assessment and Plan Start: 08/28/24 13:38 Freq: NEEDED Status: Active Protocol: Document 09/01/24 13:56 TS (Rec: 09/01/24 14:09 TS [id number]) PT Summary Assessment and Plan Potential Rehabilitation Potential Fair Summary Impairments Pain,ROM,Strength,Balance, Coordination,Sensation,Tone, Cognition,Bed Mobility, Transfers,Gait,Activity Tolerance Progress Towards Goals Slow Progress due to Medical Issues,Slow Progress due to Activity Tolerance Assessment Summary Pt continues to make slow progress with his mobility. He continues to require high flow o2 of 45% for mobility and 100% to recover. He desats to the low 70's with gait and low 80's just sitting up to the EOB. Recommended use of FWW for gait due to unsteadiness. PT is recommending home with assist and HHPT when medically stable . Goals Bed Mobility Goal Independent Transfer Goal Independent,Front Wheeled Walker Gait Goal Independent,Front Wheel Walker Gait Distance 100 Other Goals improve transfers, ambulation using 4WW/LRAD/without AD 250 ft SBA up/down 5 steps 1 rail SBA Days to Meet Goals 10 Frequency of Treatment Frequency Of Treatment Once a Day Treatment Plan Physical Therapy Treatment Plan Bed Mobility Training,Transfer Training,Gait Training, Therapeutic Exercise,Balance Retraining,Discharge Planning, Hot or Cold Pack,Neuromuscular Re-ed,Coordination Retraining Precautions Other Precautions O2 sat Recommendations To Nursing Amount of Assist Needed 1 Person Assist Discharge Recommendations PT Discharge Recommendations Home with Assistance,Home Health Transportation Needs at Discharge Private Vehicle,Wheelchair/ Cabulance
[2024-09-01] MEDS: MELATONIN 3 MG TABLET 9 MG PO (20:59)
[2024-09-01] MEDS: ATORVASTATIN 20 MG TABLET 10 MG PO (21:00)
[2024-09-02] VITALS (25 sets, daily range): BP systolic 127–152; BP diastolic 61–71; PULSE 79–102; RESP 18–34; TEMP 36.7–37.2; O2SAT 77–94
[2024-09-02] MEDS: LEVOTHYROXINE 25 MCG TABLET PO (05:56)
[2024-09-02 06:41] LABS: Alanine Aminotransferase 31 IU/L (<50); Alkaline Phosphatase 176 U/L (38-126); Aspartate Aminotransferase 36 IU/L (17-59); BUN Creatinine Ratio 26.5 (6-22); Bilirubin Total 0.5 mg/dL (0.2-1.3); Blood Urea Nitrogen 22 mg/dL (9-20); Calcium 8.8 mg/dL (8.4-10.2); Carbon Dioxide 28 mmol/L (22-32); Chloride 101 mmol/L (98-107); Estimated Glomerular Filt Rate > 60 mL/min (>60); Globulin 3.1 g/dL (1.7-4.1); Glucose 102 mg/dL (80-110); HEMOLYSIS < 15 (0-50); Magnesium 2.1 mg/dL (1.6-2.3); Potassium 3.9 mmol/L (3.4-5.1); Sodium 133 mmol/L (137-145); Total Protein 6.1 g/dL (6.3-8.2)
--- NOTE | 2024-09-02 07:33 | P.PN_ITS ---
Subjective Subjective Date Patient Seen: 09/02/24 Time Patient Seen: 08:10 Interval history: Summary: 89 M admitted with acute respiratory failure. CT consistent with IPF. He is on heated high flow today, he feels relatively well. S: The patient remains on a 50% Venti mask with 45 L flow rate, with oxygen saturations in the 94% range, falling to 85% with minimal exertion. He was able to get up and walk with physical therapy yesterday, stating felt pretty good with activity. He has not had a bowel movement since he was admitted to the hospital. Exam Vital Signs (past 8 hours): - 09/02/24 02:12 09/02/24 04:15 09/02/24 06:00 Temperature 98.9 F 98.8 F Pulse Rate 97 H 92 H 89 Respiratory Rate 18 22 18 Blood Pressure 127/61 145/71 H Pulse Oximetry 85 L 94 91 Oxygen Flow Rate 50 45 Fraction of Inspired Oxygen 45 50 Fraction of Inspired Oxygen 50 SaO2/FiO2 Ratio 180 Oxygen Delivery Method Heated High Flow Oxygen Flow Rate 45 Narrative Exam Narrative: NAD, alert and oriented. Fluent speech. Lungs with scattered crackles. Good air movement, no wheezing. On HF, slight increase in effort. Heart is regular, no murmur gallop or rub. Abdomen is soft, non distended. Extremities are free of edema. Objective Labs 08/27/24 17:48 09/02/24 06:00 Labs: Laboratory Results - last 24 hr 09/01/24 09/02/24 07:20 06:00 Sodium 131 L 133 L Potassium 3.6 3.9 Chloride 101 101 Carbon Dioxide 28 28 BUN 22 H 22 H Creatinine 0.80 0.83 Estimated GFR > 60 > 60 BUN/Creatinine Ratio 27.5 H 26.5 H Glucose 97 102 Calcium 8.8 8.8 Magnesium 2.1 2.1 Total Bilirubin 0.5 0.5 AST 34 36 ALT 30 31 Alkaline Phosphatase 167 H 176 H Total Protein 5.9 L 6.1 L Albumin 2.7 L 3.0 L Globulin 3.2 3.1 Albumin/Globulin Ratio 0.8 L 1.0 [facility] Social History household members: spouse Smoking Status: Never smoker alcohol intake: current Assessment & Plan Assessment & Plan narrative: 1. Acute respiratory failure with hypoxia. Stable to slowly improving. Will take several more days at this rate. 2. Bacterial pneumonia 3. 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 No prior history per family and patient. No evidence of aspiration or severe GERD. 4. Chronic hypothyroidism 5. Constipation. Advance bowel regimen. 6. HLD 7. BPH 8. Excessive alcohol use. The patient states drinking about 3-4 glasses of wine daily. No evidence of withdrawal. 9. DVT prophylaxis: Subcutaneous enoxaparin 10. Code status: DNR PLAN: - imaging consistent with IPF on CT. Possible small infiltrate in left lung. No PE noted. Continue prednisone 60 mg daily for now. Discussed with director of hemophilia today, no changes recommended at this time. - continue with ceftriaxone and azithromycin for possible bacterial pneumonia, likely stop tomorrow after 7 day course. - continue home statin, levothyroxine, and flomax. - will need home O2, ideally will get to O2 via nasal cannula with activity prior to discharge home. - advance bowel regimen Code: DNR, surrogate is patient's spouse Dispo: patient admitted under inpatient status. Likely discharge home, timing unclear depending on improvement in hypoxia. Quality VTE Deep Vein Thrombosis/Pulmonary Embolism Present on Admission: No PROFEE Charge codes Subsequent inpatient/observation care: [id number]
[2024-09-02] MEDS: ASPIRIN EC 81 MG TABLET PO (08:27)
[2024-09-02] MEDS: CHOLECALCIFEROL (VITAMIN D3) 1,000 UNIT TABLET 2000 UNIT PO (08:27)
[2024-09-02] MEDS: DOCUSATE 100 MG CAPSULE 200 MG PO (08:27)
[2024-09-02] MEDS: ENOXAPARIN 40 MG/0.4 ML SYRINGE SUBCUT (08:27)
[2024-09-02] MEDS: AMLODIPINE 5 MG TABLET PO (08:27)
[2024-09-02] MEDS: predniSONE 20 MG TABLET 60 MG PO (08:27)
[2024-09-02] MEDS: TAMSULOSIN 0.4 MG CAPSULE PO (08:27)
[2024-09-02] MEDS: SENNOSIDES 8.6 MG TABLET PO ×2 (09:50→20:22)
[2024-09-02] MEDS: MAGNESIUM HYDROXIDE 30 ML UDC PO (09:50)
[2024-09-02] MEDS: SODIUM CHLORIDE 0.9% FLUSH 10 ML IV ×2 (09:50→20:23)
--- NOTE | 2024-09-02 11:31 | PT.IPTN ---
Current Diagnoses Sepsis, unspecified organism (08/27/24) Physical Therapy Treatment Note M2 PT-IP Current Condition Start: 08/28/24 13:38 Freq: NEEDED Status: Active Protocol: Document 08/28/24 11:35 AB (Rec: 08/28/24 13:52 AB [id number]) Physical Therapy Current Condition Current Condition Evaluation Date 08/28/24 Treatment Diagnosis PNA; respiratory failure; difficulty in walking Onset Date 08/27/24 M3 PT-IP Subjective Start: 08/28/24 13:38 Freq: NEEDED Status: Active Protocol: Document 09/02/24 11:04 MB (Rec: 09/02/24 11:31 MB [id number]) Subjective Physical Therapy Visit Type Type Treatment Note Visit Start Time 11:04 Visit Stop Time 11:14 Number of KILN MECHANIC Visits 0 Physical Therapy Visit Comments Patient Comments Pt hook lying in bed with daughter and nearby and is agreeable to PT. Therapy Pain Assessment Pain When Pain Assessed At Rest Pain Present Pain Present Denied Pain M4 PT-IP Mobility and Gait Start: 08/28/24 13:38 Freq: NEEDED Status: Active Protocol: Document 09/02/24 11:04 MB (Rec: 09/02/24 11:31 MB [id number]) PT-Bed Mobility Assessment Rolling Type of Rolling Roll to Left Level of Assist 1 Person Assistance Supine to Sit Supine to Sit Standby Assistance,Head of Bed Elevated,Bedrails Scooting Scooting to Edge of Bed Standby Assistance PT-Transfer Assessment Sit to and From Stand Sit to and from Stand Contact Guard Assistance,1 Person Assistance,Use of Upper Extremities Equipment Transfer Assistive Device Gait Belt,4 Wheeled Walker Orthotic/Prosthetic Devices or Brace: No Transfers Transfer Destination Chair Transfer Technique Ambulation Transfer Ability Level of Assist Minimal Assistance,1 Person Assistance,Use of Upper Extremities Comments Mobility Comments HFNC 45% and sats in the low 90s at rest and decrease as low as 77% with short mobility and takes greater than 5' to recover to high 80s once sitting up in chair. HR 90s- 107 BPM and increases when desaturating. Pt puffing exhalations rapidly throughout mobility and is unable to control this. Gait Assessment Gait Gait Assistance Required: Minimum Assistance,1 Person Assist Distance (Feet) 5 Assistive Devices Assistive Device Gait Belt,Front Wheeled Walker Gait Deviations General Gait Pattern Decreased Stride Length, Decreased Feet Clearance,Step- to Gait Factors Limiting Gait Function Factors Limiting Gait Function Decreased Activity Tolerance, Poor Balance,Poor Safety Awareness,Respiratory Distress PT-Balance Assessment Sitting Balance and Reactions Static Sitting Balance Ability Good Dynamic Sitting Balance Ability Good Standing Balance and Reactions Static Standing Balance Ability Good Dynamic Standing Balance Ability Fair Device Used FWW M5 PT-IP Objective Assessments Start: 08/28/24 13:38 Freq: NEEDED Status: Active Protocol: Document 08/28/24 11:35 AB (Rec: 08/28/24 13:52 AB [id number]) Orientation Orientation/Cognition Level of Alertness Alert Orientation Name,Place,Situation Language Function Ability Hard of Hearing Safety Awareness Decreased Safety Awareness Memory Description No Deficits Noted Gross Range of Motion Lower Extremity ROM Assessment Within Functional Limits Strength Lower Extremity Strength Assessment Within Functional Limits Coordination Assessment Gross Coordination Gross Coordination WNL Sensation Assessment Sensation Gross Sensation WNL Muscle Tone Muscle Tone WNL Yes M6 PT-IP Treatment Start: 08/28/24 13:38 Freq: NEEDED Status: Active Protocol: Document 09/02/24 11:04 MB (Rec: 09/02/24 11:31 MB [id number]) Physical Therapy Treatment Education Education Provided Safety M7 PT-IP Assessment and Plan Start: 08/28/24 13:38 Freq: NEEDED Status: Active Protocol: Document 09/02/24 11:04 MB (Rec: 09/02/24 11:31 MB [id number]) PT Summary Assessment and Plan Potential Rehabilitation Potential Poor Status of Condition at Evaluation Unstable Summary Impairments Strength,Balance,Bed Mobility, Transfers,Gait,Activity Tolerance Progress Towards Goals Slow Progress due to Medical Issues,Slow Progress due to Activity Tolerance Assessment Summary Though mobility is encouraged to PT by MD and nsg, PT does not wish to exacerbate any cardiac stress given severe CRESPO with minimal mobility, severe O2 desaturation and increased HR in setting of 89 y/o male with pulmonary fibrosis and PNA. Recommend up to chair with nsg 3x/day to maintain mobility/function, without causing harm to patient. His medical presentation is biggest limiting factor to mobility at this time and he only requires CGA to min A. Currently, functional prognosis is guarded to poor. Goals Bed Mobility Goal Independent Transfer Goal Independent,Front Wheeled Walker Gait Goal Independent,Front Wheel Walker Gait Distance 100 Other Goals Improve mobility to LRAD up/down 5 steps 1 rail SBA Days to Meet Goals 10 Frequency of Treatment Frequency Of Treatment Once a Day Treatment Plan Physical Therapy Treatment Plan Bed Mobility Training,Transfer Training,Gait Training, Therapeutic Exercise,Balance Retraining,Discharge Planning, Hot or Cold Pack,Neuromuscular Re-ed,Coordination Retraining Precautions Other Precautions O2 desat Recommendations To Nursing Amount of Assist Needed 1 Person Assist Discharge Recommendations PT Discharge Recommendations Home with Assistance,Home Health Transportation Needs at Discharge Private Vehicle,Wheelchair/ Cabulance
[2024-09-02] MEDS: CARBOXYMETHYLCELLULOSE DROPS 1 DROPS EYE-BOTH (12:05)
--- NOTE | 2024-09-02 13:17 | CM.DPC ---
DCP Cont. Reviewed EMR and team rounds for status updates. Pt continues on heated high-flow O2, per Dr. Cordero, he believes it will only be possible to decrease O2 to 6L for d/c. Will need to clarify which Home Health agency is their preference for d/c. Likely 2-3 more days before he is stable.
[2024-09-02] MEDS: ATORVASTATIN 20 MG TABLET 10 MG PO (20:23)
[2024-09-02] MEDS: MELATONIN 3 MG TABLET 9 MG PO (22:41)
--- NOTE | 2024-09-02 23:47 | PC.NURSE ---
Assumed care of pt at 1900. pt alert and oriented, watching TV while seating up 45 degree in bed (foot ball game), pt doesn't appeared in distress, staing 90% on 40L Heated high flow. respirations in the mid 20-30. lungs are diminished/tight throughout. RT increase pt to 45L around 2200. will continue to monitor.
[2024-09-03] VITALS (14 sets, daily range): BP systolic 120–160; BP diastolic 61–74; PULSE 76–94; RESP 12–38; TEMP 36.3–36.9; O2SAT 84–96
[2024-09-03] MEDS: LEVOTHYROXINE 25 MCG TABLET PO (06:07)
--- NOTE | 2024-09-03 08:03 | PM.PN.1 ---
Subjective Subjective Interval history: S: He is hanging in there. Minimal cough. No fevers. He feels very weak. Remains on HF O2 50 liters 45%. Exam Vital Signs (past 8 hours): - 09/03/24 01:51 09/03/24 02:00 09/03/24 04:00 Temperature 98.5 F Pulse Rate 80 81 Respiratory Rate 28 H 16 Blood Pressure Pulse Oximetry 91 91 Oxygen Flow Rate 45 09/03/24 04:00 09/03/24 04:00 09/03/24 04:56 Temperature Pulse Rate 76 88 Respiratory Rate 24 Blood Pressure 159/74 H Pulse Oximetry 91 92 Oxygen Flow Rate 09/03/24 07:39 Temperature Pulse Rate 77 Respiratory Rate 28 H Blood Pressure Pulse Oximetry 91 Oxygen Flow Rate Fraction of Inspired Oxygen 45 SaO2/FiO2 Ratio 180 Oxygen Delivery Method High Flow Nasal Cannula Oxygen Flow Rate 45 Narrative Exam Narrative: NAD, alert and oriented. Fluent speech. Appears frail, on HF O2. Lungs with scattered crackles in bases. Good air movement, no wheezing. On HF, slight increase in effort. Heart is regular, no murmur gallop or rub. Abdomen is soft, non distended. Extremities are free of edema. Objective Labs 09/03/24 09:21 09/02/24 06:00 [facility] Social History household members: spouse Smoking Status: Never smoker alcohol intake: current Assessment & Plan Assessment & Plan narrative: 1. Acute respiratory failure with hypoxia. Stable to slowly improving. Will take several more days at this rate. 2. Bacterial pneumonia 3. 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 No prior history per family and patient. No evidence of aspiration or severe GERD. 4. Chronic hypothyroidism 5. Constipation. Advance bowel regimen. 6. HLD 7. BPH 8. Excessive alcohol use. The patient states drinking about 3-4 glasses of wine daily. No evidence of withdrawal. 9. DVT prophylaxis: Subcutaneous enoxaparin 10. Code status: DNR PLAN: - imaging consistent with IPF on CT. Possible small infiltrate in left lung. No PE noted. Continue prednisone 60 mg daily for now. Discussed with underground utility locator today, no changes recommended at this time. - continue with ceftriaxone and azithromycin for possible bacterial pneumonia, stop today after 7 day course. - continue home statin, levothyroxine, and flomax. - will need home O2, ideally will get to O2 via nasal cannula with activity prior to discharge home. - advance bowel regimen -repeat CXR today. Code: DNR, surrogate is patient's spouse Dispo: patient admitted under inpatient status. Likely discharge home, timing unclear depending on improvement in hypoxia. Time-Based Coding :: [TOTAL MINUTES] spent with patient and on the chart (including review of chart, obtaining history, exam, reviewing outside data, placing orders, documenting exam and treatment plan, and counseling patient) on [DATE]. Quality VTE Deep Vein Thrombosis/Pulmonary Embolism Present on Admission: No
[2024-09-03] MEDS: CHOLECALCIFEROL (VITAMIN D3) 1,000 UNIT TABLET 2000 UNIT PO (09:00)
[2024-09-03] MEDS: ENOXAPARIN 40 MG/0.4 ML SYRINGE SUBCUT (09:24)
[2024-09-03] MEDS: ASPIRIN EC 81 MG TABLET PO (09:25)
[2024-09-03] MEDS: SENNOSIDES 8.6 MG TABLET PO (09:25)
[2024-09-03] MEDS: TAMSULOSIN 0.4 MG CAPSULE PO (09:26)
[2024-09-03] MEDS: AMLODIPINE 5 MG TABLET PO (09:26)
[2024-09-03] MEDS: predniSONE 20 MG TABLET 60 MG PO (09:26)
[2024-09-03] MEDS: DOCUSATE 100 MG CAPSULE 200 MG PO (09:26)
[2024-09-03 09:29] LABS: Hematocrit 36.4 % (41-53); Hemoglobin 12.3 g/dL (13.5-17.5); Mean Corpuscular HGB Conc 33.9 % (30-36); Mean Corpuscular Hemoglobin 34.4 PG (26-34); Mean Corpuscular Volume 101.6 fL (80-100); Platelet Count 304 X10^3/uL (150-400); Red Blood Cell Count 3.58 X10^6/uL (4.5-5.9); Red Cell Distribution Width 12.9 % (11.6-14.8); White Blood Cell Count 14.6 X10^3/uL (4.5-11.0)
--- NOTE | 2024-09-03 10:10 | DI.RAD.S_ITS ---
PROCEDURE: XR CHEST 1V INDICATIONS: dyspnea TECHNIQUE: One view of the chest was acquired. COMPARISON: [facility], CR, XR CHEST 1V, 08/27/2024, 17:51. FINDINGS: Surgical changes and devices: None. Lungs and pleura: Moderate diffuse lung disease, greater on the left. No drainable effusions. Left lung base opacity may be slightly increased from prior. Mediastinum: Normal heart size Bones and chest wall: Degenerative changes IMPRESSION: Left greater right lung disease, with a slightly increased opacity at the left lung base compared to prior. Findings likely infectious and/or edema. Background interstitial lung disease also likely. Consider future imaging surveillance. Dictated by: René Olsen M.D. on 09/03/2024 at 10:40 Approved by: René Olsen M.D. on 09/03/2024 at 10:41
[2024-09-03] MEDS: BISACODYL 10 MG SUPP PR (10:16)
[2024-09-03] MEDS: polyethylene glycoL 3350 17 GM POWD.PACK PO (10:16)
[2024-09-03] MEDS: SODIUM CHLORIDE 0.9% FLUSH 10 ML IV ×3 (10:17→20:46)
--- NOTE | 2024-09-03 10:51 | DIET.CONS ---
Dietary Consultation Note Admission Date: 08/27/2024 19:19 Assessment: 89 y M admitted for acute resp failure with hypoxia, pneumonia, ILD. Nutrition screened for LOS. Avg recorded PO intakes 55%. No BM since admission, bowel regimen was advanced yesterday per hospitalist note. Met w/ pt and family at bedside. Pt reports normal appetite before admission w/ 3 meals daily, but decreased since admission. Open to chocolate Ensure to help meet EER. Notes from EMR that pt drinks 3-4 glasses wine daily. Ht: 177.8 cm Wt: 75 kg BMI: 22.6 UBW: Per pt UBW is 75 kg. 77.111 kg on 08/01/18 Last BM: 08/26/24 (08/28/24 00:00) MNA: 13 Ran Score: 18 Diet: 08/28/24 Breakfast Heart Healthy Diet Diet Modifications: Sodium Level: 2 gm Sodium Food Texture: Level 7 - Regular Liquid Consistency: Level 0 - Thin Nutrition Percent Meal Consumed 25% 09/03/24 08:52 Percent Meal Consumed 75% 09/03/24 08:46 Percent Meal Consumed 50% 09/02/24 18:00 Percent Meal Consumed 20 09/01/24 18:00 Labs: RBC 3.58 X10^6/uL (4.5-5.9) L 09/03/24 09:21 Hgb 12.3 g/dL (13.5-17.5) L 09/03/24 09:21 Hct 36.4 % (41-53) L 09/03/24 09:21 Creatinine 0.83 mg/dL (0.66-1.25) 09/02/24 06:00 Lactate 1.9 mmol/L (0.7-2.1) 08/27/24 17:48 NT-Pro-B Natriuret Pep 2100 pg/mL (<450) H 08/27/24 17:48 Nutrition Diagnosis: Inadequate oral intake r/t decreased hunger aeb recorded po intakes <75% for 7 days Interventions: 1. ONS chocolate BID EER: [id number] (25-28 kcal/kg per BMI) 75 Monitoring/Evaluations: po intakes, ons tolerance Electronically Signed by: Verenice Gooden 09/03/24 10:51 Clinical Dietitian [address] [address]
--- NOTE | 2024-09-03 10:59 | CM.DPNOTE ---
Addendum entered by ALFIE Reece 09/04/24 15:57: ADD: 09/04, patient discussed in multidisciplinary rounds. Eddy has asked that Pulmonary consult at bedside. Goals of care on hold for now. BELLE Original Note: DCP Cont Reviewed chart. Patient discussed in multidisciplinary rounds. Dr Kam reports patient is not clinically improving and goals of care conversation is appropriate. Plan has been home w/family and HH. CM team following clinical course closely. Available to assist with discharge planning once discharge needs are better known. BELLE
[2024-09-03] MEDS: FUROSEMIDE 40 MG/4 ML VIAL IV (12:12)
--- NOTE | 2024-09-03 14:17 | PT-IP ANOTE ---
Pt discussed in rounds and pt has not been able to be weaned from O2 requirements and nsg reports pt has been on HFNC 8 days. PT checks in with nsg and pt desaturating with bed mobility and nsg and PT agree to hold PT for mobility today given 89 y/o on HFNC with severe O2 desaturation with minimal mobility in setting of pulmonary fibrosis with PNA. Con't to monitor. Medical presentation limits functional mobility at this time. PT does not wish to cause further cardiopulmonary strain in pt. It may be that PT is not helpful but possibly more harmful at this time.
[2024-09-03] MEDS: ACETAMINOPHEN 325 MG TABLET 650 MG PO (20:45)
[2024-09-03] MEDS: ATORVASTATIN 20 MG TABLET 10 MG PO (20:46)
[2024-09-03] MEDS: MELATONIN 3 MG TABLET 9 MG PO (20:46)
[2024-09-04] VITALS (23 sets, daily range): BP systolic 125–180; BP diastolic 60–79; PULSE 62–94; RESP 17–40; TEMP 36.1–37; O2SAT 79–97
[2024-09-04] MEDS: LEVOTHYROXINE 25 MCG TABLET PO (06:16)
--- NOTE | 2024-09-04 07:39 | P.PN_ITS ---
Subjective Subjective Interval history: Pulmonary consult requested and will happen today. S: Breathing is about the same today. On high-flow at 50 in 50. Minimal cough. No chest pain. A lot of fatigue and desaturation when he moves. Exam Vital Signs (past 8 hours): - 09/04/24 00:00 09/04/24 00:00 09/04/24 02:13 Temperature 98.6 F Pulse Rate 62 68 Respiratory Rate 18 20 Blood Pressure 139/69 Pulse Oximetry 95 97 Oxygen Flow Rate 50 09/04/24 04:00 09/04/24 04:00 09/04/24 04:27 Temperature 97.0 F L Pulse Rate 67 63 Respiratory Rate 17 22 Blood Pressure 154/76 H Pulse Oximetry 94 94 Oxygen Flow Rate 50 09/04/24 06:06 Temperature Pulse Rate 62 Respiratory Rate 24 Blood Pressure Pulse Oximetry 94 Oxygen Flow Rate Fraction of Inspired Oxygen 45 SaO2/FiO2 Ratio 180 Oxygen Delivery Method Heated High Flow Oxygen Flow Rate 50 Narrative Exam Narrative: NAD, alert and oriented. Fluent speech. He was on high-flow with saturations of 89-90% at 50 and 50. Lungs are notable for basilar crackles bilaterally, normal rate and effort. Heart is regular, no murmur gallop or rub. Abdomen is soft, non distended. Extremities are free of edema. Objective Labs 09/03/24 09:21 09/02/24 06:00 Labs: Laboratory Results - last 24 hr 09/03/24 09:21 WBC 14.6 H RBC 3.58 L Hgb 12.3 L Hct 36.4 L MCV 101.6 H MCH 34.4 H MCHC 33.9 RDW 12.9 Plt Count 304 PFSH Social History household members: spouse Smoking Status: Never smoker alcohol intake: current Assessment & Plan Assessment & Plan narrative: 1. Acute respiratory failure with hypoxia. Stable to slowly improving. Will take several more days at this rate. 2. Bacterial pneumonia 3. 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 No prior history per family and patient. No evidence of aspiration or severe GERD. 4. Chronic hypothyroidism 5. Constipation. Advance bowel regimen. 6. HLD 7. BPH 8. Excessive alcohol use. The patient states drinking about 3-4 glasses of wine daily. No evidence of withdrawal. 9. DVT prophylaxis: Subcutaneous enoxaparin 10. Code status: DNR PLAN: - imaging consistent with IPF on CT. Possible small infiltrate in left lung. No PE noted. Continue prednisone 60 mg daily for now. Discussed with research hydraulic engineer today, no changes recommended at this time. - completed 7 days Abx on 09/03. - Pulmonary consult today. - wean O2 as able. Code: DNR, surrogate is patient's spouse Time-Based Coding :: [TOTAL MINUTES] spent with patient and on the chart (including review of chart, obtaining history, exam, reviewing outside data, placing orders, documenting exam and treatment plan, and counseling patient) on [DATE]. Quality VTE Deep Vein Thrombosis/Pulmonary Embolism Present on Admission: No
[2024-09-04] MEDS: AMLODIPINE 5 MG TABLET PO (09:04)
[2024-09-04] MEDS: CHOLECALCIFEROL (VITAMIN D3) 1,000 UNIT TABLET 2000 UNIT PO (09:04)
[2024-09-04] MEDS: DOCUSATE 100 MG CAPSULE 200 MG PO (09:04)
[2024-09-04] MEDS: ASPIRIN EC 81 MG TABLET PO (09:04)
[2024-09-04] MEDS: predniSONE 20 MG TABLET 60 MG PO (09:04)
[2024-09-04] MEDS: TAMSULOSIN 0.4 MG CAPSULE PO (09:05)
[2024-09-04] MEDS: SODIUM CHLORIDE 0.9% FLUSH 10 ML IV ×2 (09:05→20:22)
[2024-09-04] MEDS: ENOXAPARIN 40 MG/0.4 ML SYRINGE SUBCUT (09:06)
[2024-09-04] MEDS: polyethylene glycoL 3350 17 GM POWD.PACK PO (09:06)
--- NOTE | 2024-09-04 11:50 | PT.IPTN ---
Current Diagnoses Sepsis, unspecified organism (08/27/24) Physical Therapy Treatment Note M2 PT-IP Current Condition Start: 08/28/24 13:38 Freq: NEEDED Status: Active Protocol: Document 08/28/24 11:35 AB (Rec: 08/28/24 13:52 AB [id number]) Physical Therapy Current Condition Current Condition Evaluation Date 08/28/24 Treatment Diagnosis PNA; respiratory failure; difficulty in walking Onset Date 08/27/24 M3 PT-IP Subjective Start: 08/28/24 13:38 Freq: NEEDED Status: Active Protocol: Document 09/04/24 12:05 TS (Rec: 09/04/24 12:13 TS [id number]) Subjective Physical Therapy Visit Type Type Treatment Note Visit Start Time 11:50 Visit Stop Time 12:00 Number of RESPIRATORY THERAPY MANAGER Visits 1 Physical Therapy Visit Comments Patient Comments Pt found resting in bed, is agreeable to PT. M4 PT-IP Mobility and Gait Start: 08/28/24 13:38 Freq: NEEDED Status: Active Protocol: Document 09/04/24 12:05 TS (Rec: 09/04/24 12:13 TS [id number]) PT-Bed Mobility Assessment Supine to Sit Supine to Sit Standby Assistance,Head of Bed Elevated,Bedrails Scooting Scooting to Edge of Bed Standby Assistance PT-Transfer Assessment Sit to and From Stand Sit to and from Stand Contact Guard Assistance,1 Person Assistance,Use of Upper Extremities Equipment Transfer Assistive Device None,Gait Belt Transfers Transfer Destination Chair Transfer Technique Ambulation Comments Mobility Comments Remains on HFNC 50% in low 90' s. Supine to sit SBA with HOB elevated. Pt desats to low 80' s with bed mobility. STS with no AD CGA, pt transfers to chair, o2 desats to low 70's. Nursing in room for o2 flush 100%, pt increases to low 90's and high 80's. He was left in the chair, all needs met. Gait Assessment Gait Gait Assistance Required: Minimum Assistance,1 Person Assist Distance (Feet) 3 Assistive Devices Assistive Device None,Gait Belt Gait Deviations General Gait Pattern Decreased Stride Length, Decreased Feet Clearance,Step- to Gait Factors Limiting Gait Function Factors Limiting Gait Function Decreased Activity Tolerance, Poor Balance,Poor Safety Awareness,Respiratory Distress PT-Balance Assessment Sitting Balance and Reactions Static Sitting Balance Ability Good Dynamic Sitting Balance Ability Good Standing Balance and Reactions Static Standing Balance Ability Good Dynamic Standing Balance Ability Fair Device Used FWW M5 PT-IP Objective Assessments Start: 08/28/24 13:38 Freq: NEEDED Status: Active Protocol: Document 08/28/24 11:35 AB (Rec: 08/28/24 13:52 AB [id number]) Orientation Orientation/Cognition Level of Alertness Alert Orientation Name,Place,Situation Language Function Ability Hard of Hearing Safety Awareness Decreased Safety Awareness Memory Description No Deficits Noted Gross Range of Motion Lower Extremity ROM Assessment Within Functional Limits Strength Lower Extremity Strength Assessment Within Functional Limits Coordination Assessment Gross Coordination Gross Coordination WNL Sensation Assessment Sensation Gross Sensation WNL Muscle Tone Muscle Tone WNL Yes M6 PT-IP Treatment Start: 08/28/24 13:38 Freq: NEEDED Status: Active Protocol: Document 09/04/24 12:05 TS (Rec: 09/04/24 12:13 TS [id number]) Physical Therapy Treatment Education Education Provided Safety M7 PT-IP Assessment and Plan Start: 08/28/24 13:38 Freq: NEEDED Status: Active Protocol: Document 09/04/24 12:05 TS (Rec: 09/04/24 12:13 TS [id number]) PT Summary Assessment and Plan Potential Rehabilitation Potential Poor Summary Impairments Strength,Balance,Bed Mobility, Transfers,Gait,Activity Tolerance Progress Towards Goals Slow Progress due to Medical Issues,Slow Progress due to Activity Tolerance Assessment Summary Pt continues to make slow progress with his mobility. He continues to be on HFNC 50% in the low 90's at rest. He desats to low 70's with mobility. He continues to be SBA/CGA for most mobility. PT is recommending home with assist. Goals Bed Mobility Goal Independent Transfer Goal Independent,Front Wheeled Walker Gait Goal Independent,Front Wheel Walker Gait Distance 100 Other Goals Improve mobility to LRAD up/down 5 steps 1 rail SBA Days to Meet Goals 10 Frequency of Treatment Frequency Of Treatment Once a Day Treatment Plan Physical Therapy Treatment Plan Bed Mobility Training,Transfer Training,Gait Training, Therapeutic Exercise,Balance Retraining,Discharge Planning, Hot or Cold Pack,Neuromuscular Re-ed,Coordination Retraining Precautions Other Precautions O2 desat Recommendations To Nursing Amount of Assist Needed 1 Person Assist Discharge Recommendations PT Discharge Recommendations Home with Assistance,Home Health Transportation Needs at Discharge Private Vehicle,Wheelchair/ Cabulance
[2024-09-04] MEDS: ATORVASTATIN 20 MG TABLET 10 MG PO (20:20)
[2024-09-04] MEDS: MELATONIN 3 MG TABLET 9 MG PO (20:21)
[2024-09-04] MEDS: ACETAMINOPHEN 325 MG TABLET 650 MG PO (20:21)
--- NOTE | 2024-09-04 22:45 | P.CONS_ITS ---
History of Present Illness Consult details Date Patient Seen: 09/04/24 Chief complaint: Pneumonia, sent by PCP Narrative: I had the pleasures of seeing your patient David Lehman who is a pleasant 89 yo M with no known underlying lung disease, hyperlipidemia, hypothyroidism, BPH, CAD who presented with acute hypoxemic respiratory failure requiring HFNC on 08/27 for whom pulmonary is consulted for management. He was admitted with 2 weeks of shortness of breath not associated with cough, fevers, chills, leg edema, sick contacts. He had no prior history of lung disease and had no exertinoal dyspnea prior to 2 weeks WEB APPLICATION DEV SPECIALIST. On arrival noted to be hyponatremia, PCT negative, viral panel negative, BNP 2000. He was treated with prednisone 1mg/kg daily, CAP coverage ceftriaxone and azithro and recently given a challenge of diuretics. Echo has showed no evidence of dilated LA, abnormal systolic of diastolic dysfunction however pulmonary hypertension and dilated RV. He has been noted to be euvolemic on exam. Since 6-7 days of abx, steroids he has noted no improvement. Remains on 45L/50% with desaturation with minimal activity. Subjectively not improved. He states he is 'ready to go.' His other daughter is coming on and he'd like to transition to comfort care, here or at home. Meds Home Medications and Allergies Home Medications Medication Instructions Recorded Confirmed Type ASPIRIN (Aspir-Low) 81 mg PO DAILY ##0 07/16/13 08/28/24 History VITAMIN D (Vitamin D3) 2,000 unit PO QDAY ##0 07/16/13 08/28/24 History docusate sodium 250 mg capsule 250 mg PO QDAY ##0 07/16/13 08/28/24 History simvastatin 20 mg tablet (Zocor) 20 mg PO DAILY ##0 07/16/13 08/28/24 History tamsulosin 0.4 mg capsule (Flomax) 0.4 mg PO QDAY ##0 07/16/13 08/28/24 History levothyroxine 25 mcg capsule 25 mcg PO DAILY 07/18/18 08/28/24 History Allergies Allergy/AdvReac Type Severity Reaction Status Date / Time No Known Allergies Allergy Uncoded 07/18/18 08:29 Exam Vital Signs (past 8 hours): - 09/04/24 16:00 09/04/24 16:00 09/04/24 17:02 Temperature 97.2 F L Pulse Rate 83 80 83 Respiratory Rate 22 28 H Blood Pressure 134/64 134/66 Pulse Oximetry 92 93 91 Oxygen Delivery Method Oxygen Flow Rate Fraction of Inspired Oxygen 09/04/24 20:00 09/04/24 20:30 Temperature 97.8 F Pulse Rate 80 Respiratory Rate 23 Blood Pressure 138/79 Pulse Oximetry 91 Oxygen Delivery Method Heated High Flow Oxygen Flow Rate 50 Fraction of Inspired Oxygen 50 Fraction of Inspired Oxygen 50 SaO2/FiO2 Ratio 180 Oxygen Delivery Method Heated High Flow Oxygen Flow Rate 50 Narrative Exam Narrative: elderly male sitting up in hospital bed, family at bedside, in no distress HENMT Head: normal to inspection and normocephalic Other: wearing HFNC Resp Effort & Inspection: normal respiratory effort Other: Diminished anteriorly without significant crackles. Mildly increased work of breathing WITHOUT tachypnea Extrem General: normal to inspection Psych Appearance: grossly normal Objective Imaging CT scan - chest: My impression: I personally reviewed CT chets 08/28/24 showing fibrotic lung disease with honeycombing, traction bronchiectasis, peripheral reticulation c/w IPF however distinct diffuse GGO and interlobular septal thickening superimposed Labs 09/03/24 09:21 09/02/24 06:00 Labs: PCT negative BNP 2000 Viral panel negative Hyponatremia Leukocytosis (after steroids) PFSH Social History household members: spouse Tobacco & Substance Use Smoking Status: Never smoker alcohol intake: current Assessment & Plan Assessment and plan (1) Acute hypoxemic respiratory failure: Problem details: Patient acute hypoxemic respiratory failure likely related to ILD - IPF with flare given negative infectious disease and background of UIP specific findings. He has continued to require HFNC 50% with desaturation with movement. He has been empirically treated for IPF flare as well as CAP without improvement. I advised patient that IPF flare does not have good treatment though there is reasonable chance for recovery particularly if baseline with good functional status. He is interested in pursuing comfort measures after his daughter arrives. This was relayed to BILINGUAL EXECUTIVE ASSISTANT and Dr. Kam, hospitalist. I advised patient if he does see some improvement in coming days despite completing 7 days of treatment, he can re-evaluate his GOC. Status: Acute (2) ILD (interstitial lung disease): Problem details: Patient likely has IPF based on appearance with superimposed GGO c/w IPF flare. He was treated appropriately with steroids and antibiotics as there is no other specific treatment. He has not had clinical improvement after 7 days so considering comfort care at this time. I think reasonable to continue prednisone if not having adverse effects and continued trial at diuresis (given BNP > 2000) though suspect this is pHTN and RV related due to acute on chronic lung disease in setting of clinical euvolemia. Status: Acute Time-Based Coding :: 81 minutes spent with patient and on the chart (including review of chart, obtaining history, exam, reviewing outside data, placing orders, documenting exam and treatment plan, and counseling patient) on 09/04/24. PROFEE Charge Codes Inpatient or Observation consultation: [id number]
[2024-09-05] VITALS (20 sets, daily range): BP systolic 124–177; BP diastolic 58–80; PULSE 74–96; RESP 18–24; TEMP 36.2–37; O2SAT 88–93
[2024-09-05] MEDS: HYDRALAZINE 20 MG/ML VIAL 10 MG IV (04:10)
[2024-09-05] MEDS: SODIUM CHLORIDE 0.9% FLUSH 10 ML IV (04:11)
--- NOTE | 2024-09-05 06:14 | PC.NURSE ---
Venetian Blind Mechanic Note-Patient slept after receiving Tylenol and Melatonin. HHF 50L/55% to keep SpO2 >88%. Patient was agreeable to using a condom catheter over night, 200ml UOP. IV Hydralizine given for SBP >160 per prn order.
--- NOTE | 2024-09-05 07:59 | PM.PN.1 ---
Subjective Subjective Interval history: S: Met with patient and family. He was comfortable on high-flow. They confirmed plans for transition to comfort care tomorrow after a daughter arrives from [place]. No other concerns or requests. He indicated to the pulmonary doctor last afternoon that he would want to pursue comfort measures on when his family arrives. He does not believe and understands that he will not improve and is not stable enough to return home for hospice at home. Exam Vital Signs (past 8 hours): - 09/05/24 00:00 09/05/24 01:54 09/05/24 04:00 Temperature 97.4 F L 97.5 F L Pulse Rate 79 81 74 Respiratory Rate 18 24 19 Blood Pressure 147/73 H 177/80 H Pulse Oximetry 93 92 92 Oxygen Flow Rate 50 50 Fraction of Inspired Oxygen 50 50 09/05/24 04:10 09/05/24 06:04 Temperature Pulse Rate 76 85 Respiratory Rate 20 Blood Pressure 177/80 H Pulse Oximetry 91 Oxygen Flow Rate Fraction of Inspired Oxygen Fraction of Inspired Oxygen 50 SaO2/FiO2 Ratio 180 Oxygen Delivery Method Heated High Flow Oxygen Flow Rate 50 Narrative Exam Narrative: NAD, alert and oriented. Fluent speech. He appears relatively comfortable and is frail. He remains on high-flow oxygen. Lungs are notable for basilar crackles, normal rate and effort. Heart is regular, no murmur gallop or rub. Abdomen is soft, non distended. Extremities are free of edema. Objective Labs 09/03/24 09:21 09/02/24 06:00 [facility] Social History household members: spouse Smoking Status: Never smoker alcohol intake: current Assessment & Plan Assessment & Plan narrative: 1. Acute respiratory failure with hypoxia. Stable to slowly improving. Will take several more days at this rate. 2. Bacterial pneumonia 3. 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 No prior history per family and patient. No evidence of aspiration or severe GERD. 4. Chronic hypothyroidism 5. Constipation. Advance bowel regimen. 6. HLD 7. BPH 8. Excessive alcohol use. The patient states drinking about 3-4 glasses of wine daily. No evidence of withdrawal. 9. DVT prophylaxis: Subcutaneous enoxaparin 10. Code status: DNR PLAN: -continue current care for now. -anticipate initiation of comfort care on September 06 when family arrives. DNR. Time-Based Coding :: [TOTAL MINUTES] spent with patient and on the chart (including review of chart, obtaining history, exam, reviewing outside data, placing orders, documenting exam and treatment plan, and counseling patient) on [DATE]. Quality VTE Deep Vein Thrombosis/Pulmonary Embolism Present on Admission: No
--- NOTE | 2024-09-05 10:18 | PT-IP ANOTE ---
Per nursing pt is to go on CC and is not appropriate for PT.
--- NOTE | 2024-09-05 15:41 | PT.IPTN ---
Current Diagnoses Sepsis, unspecified organism (08/27/24) Interstitial pulmonary disease, unspecified (08/27/24) Acute respiratory failure with hypoxia (08/27/24) Physical Therapy Treatment Note M2 PT-IP Current Condition Start: 08/28/24 13:38 Freq: NEEDED Status: Active Protocol: Document 08/28/24 11:35 AB (Rec: 08/28/24 13:52 AB [id number]) Physical Therapy Current Condition Current Condition Evaluation Date 08/28/24 Treatment Diagnosis PNA; respiratory failure; difficulty in walking Onset Date 08/27/24 M3 PT-IP Subjective Start: 08/28/24 13:38 Freq: NEEDED Status: Active Protocol: Document 09/05/24 15:40 AB (Rec: 09/05/24 15:41 AB [id number]) Subjective Physical Therapy Visit Type Type Administrative Note Notes Per rounds: pt going to be on comfort care. talked with case specialist and confirmed. will d/c PT. M7 PT-IP Assessment and Plan Start: 08/28/24 13:38 Freq: NEEDED Status: Active Protocol: Document 09/05/24 15:40 AB (Rec: 09/05/24 15:41 AB [id number]) PT Summary Assessment and Plan Frequency of Treatment Frequency Of Treatment Discharge
--- NOTE | 2024-09-05 16:00 | CM.DPNOTE ---
DCP Note AIRPLANE ENGINEER reviewed EMR Per hospitalist in morning rounds, pt wishes to pursue comfort care. plan is for dtr to arrive tomorrow and then the transition to comfort care will be initiated. unsure of prognosis/oxygen needs after switched off heated high flow. AIRPLANE ENGINEER met with spouse and dtr in room. Reviewed end of care/hospice options. reviewed pt needs to be on 15L of O2 or less to qualify for hospice in the home. family reports understanding. P: pt to be switched to comfort care tomorrow, comfort care/end of life care needs pending. CM team will follow closely for pt to pass here vs home with hospice. ALFIE Tuttle
[2024-09-06] VITALS (15 sets, daily range): BP systolic 135; BP diastolic 85; PULSE 82–100; RESP 20–28; TEMP 37.2; O2SAT 85–93
--- NOTE | 2024-09-06 10:06 | PM.PN.1 ---
Subjective Subjective Interval history: S: Comfortable, anticipate comfort transitioned later today when daughter arrived from [place]. Exam Vital Signs (past 8 hours): - 09/06/24 04:00 09/06/24 04:14 09/06/24 05:57 Temperature Pulse Rate 91 H 100 H 88 Respiratory Rate 22 20 Blood Pressure Pulse Oximetry 92 92 92 Oxygen Delivery Method 09/06/24 06:00 09/06/24 07:00 09/06/24 08:00 Temperature Pulse Rate 94 H 82 Respiratory Rate Blood Pressure Pulse Oximetry 91 93 Oxygen Delivery Method Heated High Flow 09/06/24 08:28 09/06/24 08:28 09/06/24 10:00 Temperature 98.9 F Pulse Rate 95 H 83 Respiratory Rate Blood Pressure 135/85 Pulse Oximetry 92 93 Oxygen Delivery Method Fraction of Inspired Oxygen 50 SaO2/FiO2 Ratio 180 Oxygen Delivery Method Heated High Flow Oxygen Flow Rate 50 Narrative Exam Narrative: NAD, alert and oriented. Fluent speech. High-flow oxygen. Lungs are clear, normal rate and effort. Heart is regular, no murmur gallop or rub. Abdomen is soft, non distended. Extremities are free of edema. Objective Labs 09/03/24 09:21 09/02/24 06:00 [facility] Social History household members: spouse Smoking Status: Never smoker alcohol intake: current Assessment & Plan Assessment & Plan narrative: 1. Acute hypoxic respiratory failure secondary to I LD, present on admission and not improving. -anticipate transition to comfort care with an opiate infusion later today. Waiting for family to be at bedside and ready. Time-Based Coding :: [TOTAL MINUTES] spent with patient and on the chart (including review of chart, obtaining history, exam, reviewing outside data, placing orders, documenting exam and treatment plan, and counseling patient) on [DATE]. Quality VTE Deep Vein Thrombosis/Pulmonary Embolism Present on Admission: No
--- NOTE | 2024-09-06 14:30 | CM.DPNOTE ---
DCP Note FOOTWEAR SALES REPRESENTATIVE reviewed EMR. Per hospitalist in morning rounds, unknown how long pt will be here after the high flow is removed once pt's dtr gets in from [place] this afternoon. pt to be transitioned to comfort care. unknown if pt will stabilize enough to transition home with hospice vs anticipated to pass here. FOOTWEAR SALES REPRESENTATIVE met with dtr, pt, and spouse in room. Deny any social work needs or questions at this time. deny grief resources at this time. P: pt anticipated to pass here after being removed off of high flow. CM team will continue to follow closely and assist family to best of ability. . ALFIE Tuttle
[2024-09-06] MEDS: MORPHINE 50 MG in SODIUM CHLORIDE 0.9% 45 ML IV (16:54)
[2024-09-07] MEDS: MORPHINE 50 MG in SODIUM CHLORIDE 0.9% 45 ML 10 MG IV (02:42)
[2024-09-07] MEDS: MORPHINE 50 MG in SODIUM CHLORIDE 0.9% 45 ML 12 MG IV (08:01)
[2024-09-07] MEDS: MORPHINE IV (11:06)
[2024-09-07] MEDS: SODIUM CHLORIDE 0.9% IV (11:06)
--- NOTE | 2024-09-07 11:46 | CM.DPNOTE ---
Addendum entered by ALFIE Tuttle 09/07/24 12:11: Per chart, pt 1149, family at bedside. CM team will continue to follow as needed SL Original Note: DCP Note IRONER reviewed EMR. Per hospitalist and RN, pt expected to pass soon. IRONER met with two dtrs in waiting room. Answered end of life questions to best of ability. Offered resources for grief/bereavement. Dtrs interested in therapy dog services. network architect manager Nandini Villaseñor and krystyna redd therapy dog Shante so kindly agreed to meet with pt, spouse, and daughters in room. Family appreciative of Deloris's efforts. RN to request comfort care for family convenience. P: pt anticipated to pass here in next 24hours. CM team will continue to follow closely ALFIE Tuttle
--- NOTE | 2024-09-07 12:06 | PC.NURSE ---
Addendum entered by Kyle Ha R.N. 09/07/24 14:09: Patient left with facility employee at 1408, patient's flannel sweater with employee. Family aware. Original Note: Patient passed at 1149, family at bedside. Dr Kam made aware. IV removed, coordinator contacting [facility] for remains.
--- NOTE | 2024-09-07 12:40 | PM.DDS.1 ---
Discharge Summary History of Illness Narrative: From H&P: 89 years old male with history of hyperlipidemia, hypothyroidism, BPH, CAD, presented to the ER with shortness of breath for 1 week. He had a telehealth visit today and was referred to the ED for evaluation. Found to be hypoxic in the 70s on arrival and put on CPAP. Never had any pneumonia before. Compliant with his home medications. Denies any fever, sick contacts, recent travel, chest pain, palpitations, nausea, vomiting, abdominal pain, diarrhea or dysuria. Hospital Course Date of Admission: 08/27/24 19:19 Primary care provider: Corey Watkins MD Consults: 08/27/24 20:45 Consult to Occupational Therapy Evaluate & Treat Comment: Physician Instructions: Evaluate and treat Consult to Physical Therapy Evaluate & Treat Comment: Physician Instructions: Evaluate and Treat 09/06/24 16:29 Consult to Discharge Planning Routine Comment: Discharge provider: Yadiel Kam MD Discharge Diagnosis: 1. Acute respiratory failure with hypoxia. Stable to slowly improving. Will take several more days at this rate. 2. Bacterial pneumonia 3. 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 No prior history per family and patient. No evidence of aspiration or severe GERD. 4. Chronic hypothyroidism 5. Constipation. Advance bowel regimen. 6. HLD 7. BPH 8. Excessive alcohol use. The patient states drinking about 3-4 glasses of wine daily. No evidence of withdrawal. 9. DVT prophylaxis: Subcutaneous enoxaparin 10. Code status: DNR Hospital Course: This very pleasant gentleman who was admitted for acute hypoxic respiratory failure in context of IPF. The patient was on high-flow throughout his stay and treated with antibiotics and steroids. He was also seen by pulmonary medicine consultation. Unfortunately, the patient failed to improve and ultimately stated that he would like to transition to comfort care. His family assembled including 1 daughter from [place]. He was placed on comfort care with an opiate infusion non and with the patient at the bedside on September 07. Objective Imaging Multiple studies:: Radiologist's impression: Chest x-ray: Left greater right lung disease, with a slightly increased opacity at the left lung base compared to prior. Findings likely infectious and/or edema. Background interstitial lung disease also likely. Consider future imaging surveillance. Chest CTA: 1. No acute pulmonary embolus. 2. Extensive bilateral pulmonary reticulations, traction bronchiectasis, and honeycombing consistent with chronic interstitial lung disease. 3. Ground-glass opacities in the left lung are nonspecific but may represent superimposed edema or pneumonia versus findings related to interstitial lung disease. Echo: The left ventricle is normal in size and wall thickness. Left ventricular systolic function appears normal without focal wall motion abnormalities. The ejection fraction is estimated to be 60-65%. Diastolic parameters suggest probable normal left ventricular diastolic function and normal filling pressures. The right ventricle is borderline dilated. The right ventricular systolic function is normal. The right ventricular systolic pressure is estimated to be at least 56 mmHg based on an estimated right atrial pressure of 3 mm Hg. The left atrial size is normal. 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 There is mild mitral regurgitation. The aortic valve is mildly calcified. There is discrete nodular thickening of the non- coronary cusp. There is mild to moderate tricuspid regurgitation. The aortic root is normal size. Admission chest x-ray: Patchy bilateral pulmonary opacities suspicious for pneumonia. Component of underlying interstitial chronic lung disease cannot be excluded. No priors are available for comparison. Labs 09/03/24 09:21 09/02/24 06:00
== END 2024-09-07 14:08 | disposition expired | DRG 871 ==
LOC: ED 18:46 → AC 19:20 → ICU 21:09
PROVIDERS: Emergency Medicine; Hospitalist; Internal Medicine; Admitting Provider Internal Medicine; Emergency Provider Emergency Medicine; PCP Family Medicine; Referring Provider Emergency Medicine; Visit Provider Internal Medicine
DX: A41.9 Sepsis, unspecified organism (principal); J15.9 Unspecified bacterial pneumonia; J96.01 Acute respiratory failure with hypoxia; E03.9 Hypothyroidism, unspecified; E78.5 Hyperlipidemia, unspecified; I25.10 Atherosclerotic heart disease of native coronary artery without angina pectoris; N40.0 Benign prostatic hyperplasia without lower urinary tract symptoms; J84.112 Idiopathic pulmonary fibrosis; K59.00 Constipation, unspecified; F10.90 Alcohol use, unspecified, uncomplicated; Z51.5 Encounter for palliative care; Z66 Do not resuscitate
CPT/HCPCS: 36415; 71045; 71275; 80053; 81001; 82805; 83605; 83735; 83880; 84145; 84443; 84484; 85025; 85027; 87040; 87633; 87797; 93005; 93010; 93306; 94660; 94762; 96365; 96367; 96375; 97116; 97163; 97530; 99284; 99291; A9270; J0360; J0696; J1650; J1940; J2270; Q9967